=== PATIENT | male | born 1995 | race Caucasian/White ===

== ENCOUNTER 2022-12-22 02:25 | Day surgery (SDC) | payer BC, SELFPAY ==
[2022-12-16 08:35] VITALS: BMI 52.3
[2022-12-22 13:19] VITALS: BP 126/85; PULSE 82; RESP 20; TEMP 36.5; O2SAT 98; BMI 51.9
[2022-12-22] MEDS: LACTATED RINGERS 1,000 ML 150 ML IV CONT (13:31)
--- NOTE | 2022-12-22 13:33 | P.PNAN_ITS ---
Anes - Initial Pre Proc Eval Procedure: Operation Date: 12/22/22 14:15 Proposed Procedures p Esophagogastroduodenoscopy & Colonoscopy - Chalino Mcfadden MD Date/Time: 12/22/22 13:33 Surgeon: Chalino Mcfadden MD Pre Op Diagnosis: Left upper quad pain, Vomiting, diarrhea Patient Data Age: 27 Gender: M Height: 1.85 m Weight: 178.6 kg Last Vital Signs Temp 97.7 F 12/22/22 13:19 Pulse 82 12/22/22 13:19 Resp 20 12/22/22 13:19 BP 126/85 12/22/22 13:19 Pulse Ox 98 12/22/22 13:19 O2 Del Method Room Air 12/22/22 13:19 Allergies Allergy/AdvReac Type Severity Reaction Status Date / Time avocado Allergy Mild Unknown Verified 12/22/22 13:18 banana Allergy Mild Unknown Verified 12/22/22 13:18 Home Medications Medication Instructions Recorded Confirmed Type hyoscyamine sulfate 0.125 mg tablet 0.125 mg PO QID PRN dyspepsia 1 12/13/22 12/22/22 Rx month #120 tabs levothyroxine 25 mcg capsule 25 mcg PO DAILY 12/13/22 12/22/22 History pantoprazole 40 mg granules 40 mg PO DAILY 12/13/22 12/22/22 History delayed-release for susp in packet Patient hx anesthesia problems: none Family hx anesthesia problems: none Results Review: All pre-operative results and documents have been reviewed as part of the pre- operative evaluation. [facility] Past Medical History Medical History (Updated 12/13/22 @ 15:54 by SYLVIA Reardon) Diarrhea Vomiting Social History Social History (Updated 12/13/22 @ 16:04 by SYLVIA Reardon) Years smoked: 5 Smoking status: Current every day smoker Spiritual care concerns: No Anes - Eval Final PreProcedure Day of Procedure 12/22/22 13:33 Patient weight: super morbidly obese Heart: regular rate and rhythm Lungs: clear to auscultation Airway: Mallampati scale class III Neurological: alert and oriented Last oral intake: >/= 8 hours ASA classification: III Emergent: no Anesthetic plan: proceed Anesthesia type and monitoring: general GIVS and standard monitoring Results Review: All pre-operative results and documents have been reviewed as part of the pre- operative evaluation. Informed Consent: The patient's anesthetic plan and its attendant risks and benefits were discussed with the patient/family/POA. Questions were solicited and answers provided to the satisfaction of the patient/family/POA.
--- NOTE | 2022-12-22 13:52 | PM.HPGS ---
History of Present Illness History of Present Illness Consent: Risks, benefits, and alternatives have been discussed and questions answered. Patient agrees to proceed with procedure. Chief complaint: Left upper quad pain, Vomiting, diarrhea Narrative: Viral Kelly Jr. is a 27 year old male ?for evaluation of diarrhea times one year.? states symptoms occurred after eating and originally thought it was due to food poisoning. States he can have anywhere from 2-10 watery stools per day.? He reports urgency and accidents.? Loose stools most often occurs 30 minutes after eating. He can not identify any particular foods that make his symptoms worse. He also reports left upper quadrant pain that occurs shortly after eating.? Pain can last 30 minutes to all day long.? Pain does not improve with bowel movements.? He denies any associated nausea but occasionally will have random episodes of vomiting after eating. He denies any reflux/dysphagia/odynophagia. He denies any black stools or bloody stools. He denies any nighttime awakenings for diarrhea. he was started on pantoprazole and dicyclomine per PCP. Initially symptoms improved but this did not last long. Review of Systems Review of Systems: All systems reviewed & are unremarkable except as noted in HPI and below PMFSH Past Medical History Medical History Diarrhea Vomiting Social History Social History Years smoked: 5 Smoking status: Current every day smoker Spiritual care concerns: No Meds Home Medications and Allergies Home Medications Medication Instructions Recorded Confirmed Type hyoscyamine sulfate 0.125 mg tablet 0.125 mg PO QID PRN dyspepsia 1 12/13/22 12/22/22 Rx month #120 tabs levothyroxine 25 mcg capsule 25 mcg PO DAILY 12/13/22 12/22/22 History pantoprazole 40 mg granules 40 mg PO DAILY 12/13/22 12/22/22 History delayed-release for susp in packet Allergies Allergy/AdvReac Type Severity Reaction Status Date / Time avocado Allergy Mild Unknown Verified 12/22/22 13:18 banana Allergy Mild Unknown Verified 12/22/22 13:18 Vital Signs Vital Signs - 24 hr 12/22/22 13:19 Temperature 36.5 C Pulse Rate 82 Respiratory Rate 20 Blood Pressure 126/85 Pulse Oximetry 98 Oxygen Delivery Room Air Exam Const: General: alert Orientation/consciousness: patient oriented x3 Resp: Auscultation: clear to auscultation bilaterally Cardio: Rhythm: regular rhythm GI: GI Palp: Yes Soft to palpation and No Tenderness to palpation present (GI) Neuro: General: patient oriented x3 Assessment and Plan Assessment and plan (1) Vomiting: Code(s): R11.10 - Vomiting, unspecified Status: Acute Assessment and Plan: EGD with possible biopsy or dilatation or cautery. (2) Diarrhea: Code(s): R19.7 - Diarrhea, unspecified Status: Acute Assessment and Plan: Colonoscopy with possible biopsy or polypectomy or cautery or injection of substances.
--- NOTE | 2022-12-22 14:44 | SUR.OPER ---
EGD started at 1436 and ended at 1439. Colonoscopy began at 1446.
[2022-12-22 15:01] VITALS: BP 106/69; PULSE 90; RESP 23; O2SAT 94
[2022-12-22 15:11] VITALS: BP 116/80; PULSE 80; RESP 23; O2SAT 99
[2022-12-22 15:21] VITALS: BP 122/86; PULSE 67; RESP 23; O2SAT 99
== END 2022-12-22 15:42 | disposition home or self-care (01) ==
PROVIDERS: PCP Internal Medicine; Visit Provider Internal Medicine Gastroenterology
PROC: 0DJ08ZZ Inspection of Upper Intestinal Tract, Via Natural or Artificial Opening Endoscopic (ICD-10-PCS; CPT 43235; principal; 2022-12-22 14:15)
DX: R19.7 Diarrhea, unspecified (principal); R11.10 Vomiting, unspecified; R10.12 Left upper quadrant pain; K21.9 Gastro-esophageal reflux disease without esophagitis; F17.210 Nicotine dependence, cigarettes, uncomplicated; E66.9 Obesity, unspecified; Z68.43 Body mass index [BMI] 50.0-59.9, adult
CPT/HCPCS: 45380; 43239; 88305; J2704; J7120

== ENCOUNTER 2024-06-21 14:25 | Emergency (ER) | payer BC, SELFPAY | END 2024-06-21 14:46 | disposition left against medical advice (07) | LOC: ANHED 14:46 | PROVIDERS: PCP Internal Medicine | DX: Z53.21 Procedure and treatment not carried out due to patient leaving prior to being seen by health care provider (principal) | CPT/HCPCS: 99199 ==

== ENCOUNTER 2024-08-29 17:01 | Emergency (ER) | payer OTHER, SELFPAY ==
--- NOTE | ~2024-08-29 | XR_ITS ---
XR foot LT min 3V 08/29/2024 17:26 Indication: Left foot pain Procedure: 4 views left foot Comparison: No prior studies for comparison. Findings: No fracture, subluxation or dislocation. Lisfranc joint intact. No significant soft tissue abnormality. No foreign bodies. Impression: 1: No acute bone or joint abnormality. Reviewed, dictated and finalized at location A. Impression: 1: No acute bone or joint abnormality.
--- NOTE | 2024-08-29 17:04 | ED.LOWEXIN ---
HPI - Extremity Injury (Lower) General Chief Complaint: Extremity Injury, Lower Stated Complaint: L FOOT PAIN Time Seen by Provider: 08/29/24 17:04 Source: patient Mode of arrival: ambulatory Limitations: no limitations History of Present Illness HPI Narrative: Viral is a 29-year-old male patient presenting to the clinic today with complaints of left foot pain 5 months. He reports he stepped in a whole in a sidewalk 5 months ago and injured his left foot. Is complaining of pain to the lateral dorsal foot. No bruising or swelling noted. States that he has pain when he rest his foot and begins to get back on the foot or when he wakes up in the morning he has pain when he starts walking. Related Data Home Medications ?Medication ?Instructions ?Recorded ?Confirmed ?Last Taken ?Type levothyroxine 25 mcg capsule 25 mcg PO DAILY 12/13/22 08/29/24 Unknown History pantoprazole 40 mg granules 40 mg PO DAILY 12/13/22 08/29/24 Unknown History delayed-release for susp in packet Allergies Allergy/AdvReac Type Severity Reaction Status Date / Time avocado Allergy Mild Unknown Verified 08/29/24 17:11 banana Allergy Mild Unknown Verified 08/29/24 17:11 Review of Systems Review of Systems: Pertinent positives per HPI. Patient denies any fever, chills, rash, headache, visual changes, dizziness, cough, runny nose, sore throat, shortness of breath, chest pain, palpitations, nausea, vomiting, diarrhea, constipation, abdominal pain, or any urinary issues. PMFSH Past Medical History Medical History Vomiting Diarrhea Social History Social History Years smoked: 5 Smoking status: Current every day smoker Spiritual care concerns: No Comments At the time of my signature, I reviewed and agree with the nursing past medical, surgical, social, and family history. There is no relevant family history pertinent to the patient complaint. Exam Narrative: General: Well-developed, morbidly obese, in no apparent distress Head: Normocephalic, atraumatic. Cardio: Regular rate and rhythm, s1 and s2 normal, no murmur appreciated. Resp: Clear to auscultation bilaterally, no rhonchi, rales, wheezing or rubs. Musculoskeletal: No deformity, tender to palpation over the left lateral dorsal foot, grossly normal range of motion, muscle strength strong and equal, peripheral pulse strong, no edema, no cyanosis, normal gait and station Course Course Emergency Course: Portions of this record may have been created with voice recognition software. Level of Care: Express Care Visit Vital Signs Vital signs: Vital Signs Temperature 36.6 C 08/29/24 17:12 Pulse Rate 78 08/29/24 17:12 Respiratory Rate 16 08/29/24 17:12 Blood Pressure 135/87 08/29/24 17:12 Pulse Oximetry 100 08/29/24 17:12 Temperature 36.6 C 08/29/24 17:12 Pulse Rate 78 08/29/24 17:12 Respiratory Rate 16 08/29/24 17:12 Blood Pressure 135/87 08/29/24 17:12 Pulse Oximetry 100 08/29/24 17:12 Vital signs reviewed MDM - Extremity Injury (Lower) MDM Narrative Medical decision making narrative: At the time of visit patient is resting comfortably on the exam table. Patient appears to be nontoxic. Diagnostics: X-rays negative for any sign of fracture or malalignment of the left foot. Plan: I suspect you have chronic foot pain. Supportive measures were discussed with the patient and they voiced understanding discharge instructions and agrees to treatment plan. Return precautions reviewed Differential Diagnosis Differential diagnosis: Likely other (Foot fracture, foot sprain, arthritis, tendinitis) Imaging Data Radiologist's impression: ITS Impressions Foot X-Ray 08/29/24 17:29 Impression: 1: No acute bone or joint abnormality. Discharge Plan Discharge Clinical Impression: Chronic pain in left foot Patient Disposition: Home, Self-Care Condition: Stable Instructions: Antibiotic Form, Foot Sprain (ED) Additional Instructions: X-rays negative for any sign of fracture or malalignment of the left foot. Rest, ice, elevate Tylenol/motrin for pain as discussed. Gradually bear weight No running or sports until healed. Follow up with your PCP if symptoms persist more than 1 week. May follow-up with orthopedic provider if symptoms persist-may need further evaluation with an MRI Patient Language: Palestinian Prescriptions: No Action pantoprazole [address] for susp in packet 40 mg PO DAILY levothyroxine 25 mcg capsule 25 mcg PO DAILY hyoscyamine sulfate 0.125 mg tablet 0.125 mg PO QID PRN (Reason: dyspepsia) 30 Days Qty: 120 2RF Follow-up/Referrals: Jignesh De La Cruz MD [Physician] - 1 Day (Chronic left foot pain) Adria,Narayan Brody MD [Primary Care Provider] - Time of Disposition: 17:35 Quality NIHSS Nursing Documentation ED NIHSS nursing documentation: reviewed/agree
[2024-08-29 17:12] VITALS: BP 135/87; PULSE 78; RESP 16; TEMP 36.6; O2SAT 100
== END 2024-08-29 17:44 | disposition home or self-care (01) ==
PROVIDERS: Emergency Provider Nurse Practitioner Family; PCP Internal Medicine
DX: G89.29 Other chronic pain (principal); M79.672 Pain in left foot; F17.200 Nicotine dependence, unspecified, uncomplicated
CPT/HCPCS: 73630; 99213; G0463

== ENCOUNTER 2024-10-21 19:08 | Emergency (ER) | payer OTHER, SELFPAY ==
[2024-10-21 19:11] VITALS: BP 118/81; PULSE 114; RESP 16; TEMP 37.4; O2SAT 98
--- NOTE | 2024-10-21 19:46 | ED_ITS ---
HPI - Fever General Chief Complaint: Fever Stated Complaint: Fever Source: patient and RN notes reviewed Mode of arrival: ambulatory Limitations: no limitations History of Present Illness HPI Narrative: 29-year-old male presents Express Care with girlfriend complaining of fever for 4 days. Patient reports having fevers as high as the 105 in 104 F at home. Patient initially went to [facility] over the weekend and left without being seen due to the wait. Patient then returned today to [facility] ER and had lab work and imaging performed. He then left the ER again due to the wait time. Patient is here for further evaluation. Patient says that he is fevers, body aches, chills, blurry vision, sores on his lips and a sore on the roof of his mouth, and pain when he moves his eyes. Patient denies any upper respiratory symptoms, abdominal pain, nausea, vomiting, diarrhea, chest pain, shortness of breath, urinary symptoms. Patient denies any significant past medical history. Patient last took Tylenol today around 530 this evening. Patient showed lab work and imaging was performed today through clinician that showed leukopenia, unremarkable chemistry, negative chest x-ray for any cardiopulmonary findings, negative COVID and flu, and normal lactic acid. Related Data Home Medications Medication Instructions Recorded Confirmed Last Taken Type levothyroxine 25 mcg capsule 25 mcg PO DAILY 12/13/22 08/29/24 Unknown History pantoprazole 40 mg granules 40 mg PO DAILY 12/13/22 08/29/24 Unknown History delayed-release for susp in packet Allergies Allergy/AdvReac Type Severity Reaction Status Date / Time avocado Allergy Mild Unknown Verified 10/21/24 19:40 banana Allergy Mild Unknown Verified 10/21/24 19:40 Review of Systems Review of Systems: CONSTITUTIONAL: Positive for fever, chills, or sweats. EYES: Denies visual changes, redness, or discharge. Positive for blurry vision pain with eye movement. ENT: Denies rhinorrhea, congestion, sore throat, or otalgia. Positive for lip and mouth sores. CARDIOVASCULAR: Denies chest pain, palpitations, or edema. RESPIRATORY: Denies cough or dyspnea. GASTROINTESTINAL: Denies abdominal pain, nausea, vomiting, or diarrhea. GENITOURINARY: Denies dysuria or hematuria. SKIN: Denies rash or itching. MUSCULOSKELETAL: Denies back pain, joint pain, or myalgia. NEUROLOGIC: Denies headache, numbness, or weakness. PSYCHIATRIC: Denies anxiety or depression. All other systems reviewed are negative, except as documented in HPI. [facility] Past Medical History Medical History Vomiting Diarrhea Social History Social History Years smoked: 5 Smoking status: Current every day smoker Spiritual care concerns: No Comments At the time of my signature, I reviewed and agree with the nursing past medical, surgical, social, and family history. There is no relevant family history pertinent to the patient complaint. Exam Narrative: GENERAL: This is a well-nourished, well-developed adult, in no apparent distress. They are are ill-appearing, nontoxic appearing. Patient is profusely sweating. Patient is morbidly obese. Ago exam limited due to large body ramirez bitus. HEAD: normocephalic, atraumatic. EYES: Sclera clear/white. Conjunctiva normal. Vision is grossly intact. Extraocular movements intact. Pain with movement of eye. Pupils PERRLA. No nystagmus. Patient reports blurry vision in the right eye. EARS: External ears normal, auditory canals clear and without drainage, TMs normal without perforation. Hearing grossly intact. NOSE: External nose normal with no obvious nasal discharge, nasal turbinates without redness, no rhinorrhea. THROAT: Mucous membranes moist, posterior pharynx clear, without erythema or swelling. Uvula midline. MOUTH: Oropharynx: Single painful circular erythematous vesicular lesion to the hard palate of the oral pharynx located on the right side. Teeth are intact. No Gingivitis. Tongue is normal without swelling or redness. Lips: To painful circular erythematous vesicular lesions to the upper lip. NECK: Neck supple, non-tender without lymphadenopathy, masses or thyromegaly. CARDIOVASCULAR: Regular rate and rhythm without murmurs, gallops, or rubs. RESPIRATORY: Clear to auscultation. Breath sounds equal bilaterally. No wheezes, rales, or rhonchi. Respiratory rate normal, respiratory effort nonlabored, no respiratory distress GASTROINTESTINAL: Abdomen soft, non-tender, nondistended. Bowel sounds are active. No hepato-splenomegaly, or palpable masses. No guarding. SKIN: warm, Dry, intact with no suspicious lesions or rash, good texture and turgor. NEURO: awake, alert, and oriented to person, place and time. There were no obvious focal neurologic abnormalities. EXTREMITIES: No joint tenderness, effusion, or edema noted. BACK: Nontender without deformity. No CVA tenderness. Course Course Emergency Course: Portions of this record may have been created with voice recognition software Level of Care: Express Care Visit Vital Signs Vital signs: Vital Signs Temperature 99.4 F 10/21/24 19:11 Pulse Rate 114 H 10/21/24 19:11 Respiratory Rate 16 10/21/24 19:11 Blood Pressure 118/81 10/21/24 19:11 Pulse Oximetry 98 10/21/24 19:11 Oxygen Delivery Room Air 10/21/24 19:11 Temperature 99.4 F 10/21/24 19:11 Pulse Rate 114 H 10/21/24 19:11 Respiratory Rate 16 10/21/24 19:11 Blood Pressure 118/81 10/21/24 19:11 Pulse Oximetry 98 10/21/24 19:11 Oxygen Delivery Room Air 10/21/24 19:11 Reviewed Transfer Transfered to: [facility] Medical Transportation: Other (Private vehicle) Transfer rationale: Fever of unknown origin, higher level care Accepting physician: Doctor Del Valle MDM - Fever MDM Narrative Medical decision making narrative: After review of patient's lab work, vitals, and patient's symptoms is recommend the patient return to the ER for higher level care for further evaluation and management of his symptoms. Patient does not want to go back to [facility]. Patient is agreeable to go to [facility]. Call report over to [facility] spoke to Miller SORIANO whose wear this patient Dr. Del Valle accepted this patient for transfer. Patient advised to remain NPO and proceed immediately to the ER. Patient girlfriend will drive him via private vehicle. Differential Diagnosis Differential diagnosis: Likely fever of unknown origin, viral infection and sepsis Critical Care Time Critical Care Time Critical Care Time: No Discharge Plan Discharge Clinical Impression: Fever, Blurred vision, right eye Patient Disposition: Acute Care Hospital Condition: Stable Patient Language: Wallisian Prescriptions: No Action pantoprazole 40 mg granules for susp in packet 40 mg PO DAILY levothyroxine 25 mcg capsule 25 mcg PO DAILY hyoscyamine sulfate 0.125 mg tablet 0.125 mg PO QID PRN (Reason: dyspepsia) 30 Days Qty: 120 2RF Follow-up/Referrals: Adria,Narayan Brody MD [Primary Care Provider] - Time of Disposition: 19:45
== END 2024-10-21 19:53 | disposition short-term general hospital (02) ==
PROVIDERS: PCP Internal Medicine
DX: R50.9 Fever, unspecified (principal); H53.8 Other visual disturbances; F17.200 Nicotine dependence, unspecified, uncomplicated
CPT/HCPCS: 99212; G0463

== ENCOUNTER 2024-12-12 06:37 | Outpatient (CLI) | payer OTHER, SELFPAY ==
--- NOTE | ~2024-12-12 | MR_ITS ---
EXAMINATION: MR foot LT wo con DATE: 12/12/2024 08:05 INDICATION: Left foot injury TECHNIQUE: Magnetic resonance imaging (MRI) of the left fore/mid foot was performed without intraveno us contrast. Sequences included sagittal T1-weighted FSE, sagittal fluid sensitive FSE STIR, coronal PD-weighted FS FSE, coronal T1-weighted FSE, axial PD-weighted FS FSE, and axial PD-weighted FSE. COMPARISON: Left foot radiographs dated 08/29/2024 FINDINGS: Bone alignment is normal. There is normal bone marrow signal throughout. No fracture or pathologic ma rrow replacing process. Joint spaces are normal. No erosions. No joint effusions or other abnormal fl uid collections. The visualized portions of the flexor and extensor tendons are normal. The Lisfranc ligament complex as well as the collateral ligament complex at the metatarsophalangeal and interphala ngeal joints are normal. There is susceptibility artifact along the skin surface plantar/medial to th e neck of the first metatarsal likely related to foreign body either along or just deep to the skin s urface. IMPRESSION: 1. Magnetic field artifact consistent with small metallic foreign body heights are longer just deep t o the skin surface, plantar/medial to the neck of the first metatarsal. Otherwise unremarkable MRI of the left fore and midfoot. Reviewed, dictated and finalized at location A. IMPRESSION: 1. Magnetic field artifact consistent with small metallic foreign body heights are longer just deep to the skin surface, plantar/medial to the neck of the fir st metatarsal. Otherwise unremarkable MRI of the left fore and midfoot.
--- NOTE | ~2024-12-12 | MR_ITS ---
MRI of the left ankle Clinical history: Injury Technique: Coronal proton-density and proton-density fat-sat images, axial proton-density and proton- density fat-sat images, and sagittal proton-density and proton-density fat-sat images were acquired. Findings: Syndesmotic ligaments are intact. Anterior and posterior talofibular ligaments, and calcane ofibular ligament are probably intact. Deltoid ligament intact. Medial flexor tendons, peroneal tendons, anterior extensor tendons, and Achilles tendon are intact. No osteochondral lesion of the talar dome seen. Joint spaces and bone marrow signals are unremarkable . No significant joint effusion. Plantar fascia intact. No soft tissue mass or fluid collection seen. Impression: No significant abnormality. Reviewed, dictated and finalized at [facility]. Impression: No significant abnormality.
--- OUTSIDE RECORDS SUMMARY | 2024-12-12 06:40 | XMS_ITS | Encounter Summary ---
Author Organization [facility] Address [address] [place] [address] Care Team Providers Care Granite Countertop Installer Name Role Phone Derrell Stanley MD Primary Care Provider [phone] Encounter Details Date Type Department Care Team (Latest Contact Info) Description 01/24/2007 Outpatient Historical [facility], Vega Garcia MD 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
--- OUTSIDE RECORDS SUMMARY | 2024-12-12 06:40 | XMS_ITS | Encounter Summary ---
Author Organization [facility] Address [address] [place] [address] Care Team Providers Care Department Head Name Role Phone Derrell Stanley MD Primary Care Provider [phone] Encounter Details Date Type Department Care Team (Late st Contact Info) Description 09/20/2006 Outpatient [facility] Pediatric[facility] [address] [place] [address] Vega Adame MD [id number] [place] [address] Social History Tobacco Use Types Packs/Day Years Used Date Smoking Tobacco: Never Assessed Sex and Gender Information Value Date Recorded Sex Assigned at Not on file 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
--- OUTSIDE RECORDS SUMMARY | 2024-12-12 06:40 | XMS_ITS | Encounter Summary ---
Author Organization [facility] Address [address] [place] [address] Care Team Providers Care Siding Mechanic Name Role Phone Derrell Stanley MD Primary Care Provider [phone] Encounter Details Date Type Department Care Team (Late st Contact Info) Description 11/05/2003 Outpatient Historical [facility] Pediatrics - [facility] [address] [address] Vega Adame MD 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
--- OUTSIDE RECORDS SUMMARY | 2024-12-12 06:40 | XMS_ITS | Encounter Summary ---
Author Organization [facility] Address [address] [place] [address] Care Team Providers Care Rehab Aid Name Role Phone Derrell Stanley MD Primary Care Provider [phone] Encounter Details Date Type Department Care Team (Latest Contact Info) Description 03/19/2005 [facility] Vega Garcia MD [address] 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 Gender Identity Not on file Sexual Orientation Not on file documented as of this encounter Plan of Treatment Not on file documented as of this encounter Procedures Procedure Name Priority Date/Time Associated Diagnosis Comments HEMOGLOBIN AND HEMATOCRIT Routine 03/19/2005 11:47 AM CDT LEAD BLOOD Routine 03/19/2005 11:47 AM CDT GLUCOSE LEVEL Routine 03/19/2005 11:47 AM CDT LIPID PANEL Routine 03/19/2005 11:47 AM CDT documented in this encounter Results * GLUCOSE LEVEL (03/19/2005 11:47 AM CDT) GLUCOSE 68 60 - 110 mg/dL INTERFACE SYSTEM 03/19/2005 11:4 7 AM CDT Vega Adame MD CHEMISTRY ORDERABLES Final Resu lt Performing Organization Address [facility] Phone Number INTERFACE SYSTEM Refer to clinic/hospital department * LEAD BLOOD (03/19/2005 11:47 AM CDT) LEAD BLOOD <3 <10 ug/dL INTERFACE SYSTEM LEAD COLLECTION SAMPLE VENOUS INTERFACE SYSTEM Comment: Lab test performed by: [email or web address] [id number] JUSTINA FUENTES MD 03/19/2005 11:4 7 AM CDT Vega Adame MD CHEMISTRY ORDERABLES COM Final Result Performing Organization Address [facility] Phone Number INTERFACE SYSTEM Refer to clinic/hospital department * HEMOGLOBIN AND HEMATOCRIT (03/19/2005 11:47 AM CDT) HEMOGLOBIN 13.2 11.5 - 15.5 g/dL INTERFACE SYSTEM HEMATOCRIT 38.6 35.0 - 45.0 % INTERFACE SYSTEM 03/19/2005 11:4 7 AM CDT Vega Adame MD HEMATOLOGY ORDERABLES Final Res ult Performing Organization Address [facility] Number INTERFACE SYSTEM Refer to clinic/hospital department * (ABNORMAL) LIPID PANEL (03/19/2005 11:47 AM CDT) CHOLESTEROL 174(H) 90 - 169 mg/dL INTERFACE SYSTEM TRIGLYCERIDE 86 33 - 129 mg/dL INTERFACE SYSTEM HDL 83(H) 38 - 76 mg/dL INTERFACE SYSTEM LDL CALCULATED 74 <=109 mg/dL INTERFACE SYSTEM CHOL/HDL RATIO 2.1 2.0 - 5.0 INTER FACE SYSTEM Comment:See interpretive suzi a section for risk classifications. LIPID PANEL COMMENT See below INTERFACE SYSTEM Comment: Adult ATP III Classifications: Cholesterol (mg/dL) Triglyceride (mg/dL) Desirable <200 Normal <150 Borderline 200 - 239 Borderline High 150 - 199 High >=240 High 200 - 499 Very High >=500 HDL Cholesterol (mg/dL) LDL (mg/dL) Low (increased risk) <40 Optimal <100 High (reduced risk) >=60 Near or above optimal 100 - 129 Borderline 130 - 159 High 160 - 189 Very High >=190 LDL calculation is not accurate if Triglycerides are greater than 400 mg /dL Pediatric NCEP Classifications: Cholesterol(<20 years),(mg/dL) Triglyceride Desirable <170 Pediatric classification Borderline 170 - 199 not defined. High >=200 HDL (<5 years) LDL (mg/dL) No Reference Range Established Desirable <110 Borderline 110 - 129 High >=130 03/19/2005 11:4 7 AM CDT us Vega Adame MD CHEMISTRY ORDERABLES Final Resu lt INTERFACE SYSTEM Refer to clinic/hospital department documented in this encounter Visit Diagnoses Diagnosis Routine or child health check- Primary documented in this encounter Care Teams Rehab Aid Relationship Specialty Start Date End Date Derrell Stanley MD [address] [facility] [address] [place] [id number] PCP - General Family Practice 10/27/09 documented as of this encounter
--- OUTSIDE RECORDS SUMMARY | 2024-12-12 06:40 | XMS_ITS | Encounter Summary ---
Author Organization [facility] Address [address] [place] [address] Care Team Providers Care Herbologist Name Role Phone Derrell Stanley MD Primary Care Provider [phone] Encounter Details Date Type Department Care Team (Late st Contact Info) Description 02/16/2005 Outpatient [facility] [address] [place] [address] Vega Adame MD [id number] [place] [address] Social History Tobacco Use Types Packs/Day Years Used Date Smoking Tobacco: Never Assessed Sex and Gender Information Value Date Recorded Sex Assigned at Not on file 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
--- OUTSIDE RECORDS SUMMARY | 2024-12-12 06:40 | XMS_ITS | Data Portability ---
Author Organization [facility] [employer], Main Office Address [address] [place] [address] Assessment Encounter Date Assessment Date Assessment LastModified by Organization Details LastModified Time 06/08/2023 06/08/2023 Rectal bleeding with bowel movements for several days. Negative colonoscopy approximately 5 months ago. . We will prescribe 10 days steroid suppositories. Patient will follow up if symptoms worsen or Reoccur. Patient will also have counseled to increase fiber intake avoid fatty and stay hydrated [email or web address] Not available 06/08/2023 13:29:27 Plan of Treatment Reminders Order Date Submit Date Provider Last Modified By Organization Details Last Modified Time Details Appointments None recorded. Lab BABATUNDE (antinuclea r antibodies) screen, ifa, serum 2024 025 [facility] (Lab), [address] [place], [address], 5 15:21:44 C-reactive protein, quantitativ e, serum or plasma [address] (Lab), [address] [place], [address], 5 15:36:33 erythrocyte sedimentati on rate, QN, blood [address] (Lab), [address] [place], [address], 5 15:36:33 Rickettsia rickettsii IgG Ab, QL, IA, Serum or Plasma [address] (Lab), [address] [place], [address], 5 15:36:33 C-reactive protein, quantitativ e, serum or plasma [address] (Lab), [address] [place], [address], 5 15:36:32 BMP, serum or plasma [address] (Lab), [address] [place], [address], 5 15:36:33 HBsAg (hepatitis B surface Ag), serum 2024 [place] [address] [facility], [address], [place], [address], 5 15:36:33 hepatitis B core Ab, total, serum 2024 [place] [facility], [address], [address], [place], [address], 5 00:19:32 hepatitis B core IgM Ab, qual, serum or plasma 2024 025 [place] [facility], [address], [place], [address], 5 14:13:21 hepatitis B surface Ab, quantitativ e, serum 2024 025 [place] [facility], [address], [place], [address], 5 16:12:20 hepatitis A virus Ab, qualitative , immunoassay , serum 2024 025 [place] [facility], [address], [address], [place], [address], 5 01:18:44 hepatitis A IgM Ab, qual immunoassay , serum or plasma 2024 025 [place] [facility], [address] , [address], [place], [address], 5 00:19:32 hepatitis C Ab, serum 2024 025 [place] [facility], [address] , [address], [place], [address], 5 16:12:20 hepatic function panel, serum 2024 025 [place] [facility], [address] , [address], [place], [address], 5 14:31:02 testosteron e, free + total, serum 2024 025 [facility] (Lab), [address] [place], [address], 5 04:16:57 TSH, serum or plasma 2024 025 [facility] (Lab), [address] [place], [address], 5 04:16:57 lipid panel, serum 2022 023 [facility] (Lab), [address] [place], [address], 3 21:32:12 CBC w/ auto diff 2022 023 [facility] (Lab), [address] [place], [address], 3 19:44:43 CMP, serum or plasma 2022 023 [facility] (Lab), [address] [place], [address], 3 21:32:08 TSH, serum or plasma 2022 023 [facility] (Lab), [address] [place], [address], 3 19:41:01 T3, free, serum or plasma 2022 023 [facility] (Lab), [address] [place], [address], 3 19:41:11 T4, free, serum 2022 023 [facility] (Lab), [address] [place], [address], 3 19:40:56 testosteron e, free + total, serum 2022 023 [facility] (Lab), [address] [place], [address], 4 09:08:37 Referral None recorded. Procedures None recorded. Surgeries None recorded. Imaging CT, ankle + foot, w/ contrast - Pelase call patient to schedule. 2024 025 [email or web address] [facility] ([facility] Sched[facility]), [address] [place], [address], 5 11:52:57 US, echocardiog lynda, transthorac ic, complete - no auth required [email or web address] [place] [address] ([facility] Call Scheduling), [address] [place], [address], 4 08:10:44 electrocard iogram 2022 023 [email or web address] [facility] [address], [facility] [place], [address], 3 09:11:33 Medication Orders Valtrex 500 mg tablet 2024 025 [facility] #48851, [address], [place], [place], [id number], 5 13:53:24 doxycycline hyclate 100 mg capsule 2024 025 [facility] #35363, [address], [place], [place], [id number], 5 13:53:24 ibuprofen 800 mg tablet 2024 025 [facility] #09844, [address], [place], [place], [id number], 5 16:58:08 Zepbound 2.5 mg/0.5 mL subcutaneou s pen injector [email or web address] [facility] #21314, [address], [place], [place], [id number], 5 12:06:58 carvedilol 3.125 mg tablet 2024 025 [facility] #53543, [address], [place], [place], [id number], 5 15:53:55 levothyroxi ne 50 mcg tablet 2024 025 [facility] #93339, [address], [place], [place], [id number], 5 15:53:54 Patient TargetsNo targets recorded. Patient Instructions Encounter Date Encounter Id Patient Instructions Last Modified By Organization Details Last Modified Time 10/22/2024 [id number] Continue to take advil around the clock for fever. Continue to drink water and stay hydrated. If symptoms worsen, proceed to the Emergency room. Watch for any bulls eye rash on body related to possible tick bite. [email or web address] Not available 10/22/2024 13:52:10 Discussed care and worsening symptoms at this time. Continue to wear a mask in public at this time due to fever. Increase rest and water intake at this time. Symptom management at this time. Labs ordered- will notify of results. [email or web address] Not available 10/22/2024 14:51:20 Reason for Referral None Reported. Results Created Date Observation Date Name Description Value Unit Range Abnormal Flag Note LastModifiedBy Organization Detail LastModifiedTime 05/22/2005/22/2023 T4 FREE free T4 1.15 NG/dL 0.78-2 .19 Not Available [facility] (Lab) [address] [place], [address], 05/22/2023 20:36:35 05/22/20 23 05/22/2023 TSH thyroid-stim ulating hormone 5.030 uIU/m L 0.465- 4.680 high Not Available [facility] (Lab) [address] [place], [address], 05/22/2023 20:36:56 05/22/20 23 05/22/2023 T3 FREE free T3 3.8 pg/mL 2.77-5 .27 Not Available [facility] (Lab) [address] [place], [address], 05/22/2023 20:36:40 05/22/20 23 05/22/2023 CBC/C OMPLE TE BLD COUNT W/DIF F white blood cells 6.3 x10'3 /uL 4.2-10 .8 Not Available [facility] (Lab) [address] [place], [address], 05/22/2023 19:44:43 05/22/20 23 05/22/2023 CBC/C OMPLE TE BLD COUNT W/DIF F red blood cells 5.13 x10'6 /uL 4.10-5 .80 Not Available [facility] (Lab) [address] [place], [address], 05/22/2023 19:44:43 05/22/20 23 05/22/2023 CBC/C OMPLE TE BLD COUNT W/DIF F hemoglobin 15.0 g/dL 13.2-1 7.0 Not Available [facility] (Lab) [address] [place], [address], 05/22/2023 19:44:43 05/22/20 23 05/22/2023 CBC/C OMPLE TE BLD COUNT W/DIF F hematocrit 45.4 % 39.3-5 0.0 Not Available [facility] (Lab) [address] [place], [address], 05/22/2023 19:44:43 05/22/20 23 05/22/2023 CBC/C OMPLE TE BLD COUNT W/DIF F mean red cell volume 88.5 fL 80.0-9 7.0 Not Available [facility] (Lab) [address] [place], [address], 05/22/2023 19:44:43 05/22/20 23 05/22/2023 CBC/C OMPLE TE BLD COUNT W/DIF F mean red cell hemoglobin 29.2 pg 27.0-3 3.0 Not Available [facility] (Lab) [address] [place], [address], 05/22/2023 19:44:43 05/22/20 23 05/22/2023 CBC/C OMPLE TE BLD COUNT W/DIF F mean RBC HGB concentratio n 33.0 g/dL 31.0-3 6.0 Not Available [facility] (Lab) [address] [place], [address], 05/22/2023 19:44:43 05/22/20 23 05/22/2023 CBC/C OMPLE TE BLD COUNT W/DIF F red cell distribution width 12.9 % 11.8-1 5.5 Not Available [facility] (Lab) [address] [place], [address], 05/22/2023 19:44:43 05/22/20 23 05/22/2023 CBC/C OMPLE TE BLD COUNT W/DIF F platelets 270 x10'3 /uL 150-40 0 Not Available [facility] (Lab) [address] [place], [address], 05/22/2023 19:44:43 05/22/20 23 05/22/2023 CBC/C OMPLE TE BLD COUNT W/DIF F mean platelet volume 10.6 fL 9.0-12 .4 Not Available [facility] (Lab) [address] [place], [address], 05/22/2023 19:44:43 05/22/20 23 05/22/2023 CBC/C OMPLE TE BLD COUNT W/DIF F neutrophils 51.9 % 39.0-7 2.0 Not Available [facility] (Lab) [address] [place], [address], 05/22/2023 19:44:43 05/22/20 23 05/22/2023 CBC/C OMPLE TE BLD COUNT W/DIF F lymphocytes 37.7 % 16.0-4 7.0 Not Available [facility] (Lab) [address] [place], [address], 05/22/2023 19:44:43 05/22/20 23 05/22/2023 CBC/C OMPLE TE BLD COUNT W/DIF F monocytes 7.1 % 5.0-12 .0 Not Available [facility] (Lab) [address] [place], [address], 05/22/2023 19:44:43 05/22/20 23 05/22/2023 CBC/C OMPLE TE BLD COUNT W/DIF F eosinophils 2.5 % 1.0-7. 0 Not Available [facility] (Lab) [address] [place], [address], 05/22/2023 19:44:43 05/22/20 23 05/22/2023 CBC/C OMPLE TE BLD COUNT W/DIF F basophils 0.6 % 0.0-2. 0 Not Available [facility] (Lab) [address] [place], [address], 05/22/2023 19:44:43 05/22/20 23 05/22/2023 CBC/C OMPLE TE BLD COUNT W/DIF F immature granulocytes 0.2 % 0.00-0 .50 Not Available [facility] (Lab) [address] [place], [address], 05/22/2023 19:44:43 05/22/20 23 05/22/2023 CBC/C OMPLE TE BLD COUNT W/DIF F neutrophils, absolute count 3.29 x10'3 /uL 1.5-8. 0 Not Available [facility] (Lab) [address] [place], [address], 05/22/2023 19:44:43 05/22/20 23 05/22/2023 CBC/C OMPLE TE BLD COUNT W/DIF F lymphocytes, absolute count 2.39 x10'3 /uL 1.07-3 .43 Not Available [facility] (Lab) [address] [place], [address], 05/22/2023 19:44:43 05/22/20 23 05/22/2023 CBC/C OMPLE TE BLD COUNT W/DIF F monocytes, absolute count 0.45 x10'3 /uL 0.29-0 .99 Not Available [facility] (Lab) [address] [place], [address], 05/22/2023 19:44:43 05/22/20 23 05/22/2023 CBC/C OMPLE TE BLD COUNT W/DIF F eosinophils, absolute count 0.16 x10'3 /uL 0.02-0 .53 Not Available [facility] (Lab) [address] [place], [address], 05/22/2023 19:44:43 05/22/20 23 05/22/2023 CBC/C OMPLE TE BLD COUNT W/DIF F basophils, absolute count 0.04 x10'3 /uL 0.01-0 .08 Not Available [facility] (Lab) [address] [place], [address], 05/22/2023 19:44:43 05/22/20 23 05/22/2023 CBC/C OMPLE TE BLD COUNT W/DIF F immature granulocytes ,absolute 0.01 x10'3 /uL 0.00-0 .05 Not Available [facility] (Lab) [address] [place], [address], 05/22/2023 19:44:43 05/22/20 23 05/22/2023 CBC/C OMPLE TE BLD COUNT W/DIF F nucleated red blood cells 0.0 % -0 Not Available [facility] (Lab) [address] [place], [address], 05/22/2023 19:44:43 05/22/20 23 05/22/2023 CBC/C OMPLE TE BLD COUNT W/DIF F NRBC# 0.00 x10'3 /uL Not Available [facility] (Lab) [address] [place], [address], 05/22/2023 19:44:43 05/22/20 23 05/22/2023 COMPR EHENS CAROLYN METAB OLIC PANEL sodium 141 mmol/ L 137-14 5 Not Available [facility] (Lab) [address] [place], [address], 05/22/2023 21:32:07 05/22/20 23 05/22/2023 COMPR EHENS CAROLYN METAB OLIC PANEL potassium 4.5 mmol/ L 3.5-5. 1 Not Available [facility] (Lab) [address] [place], [address], 05/22/2023 21:32:07 05/22/20 23 05/22/2023 COMPR EHENS CAROLYN METAB OLIC PANEL chloride 107 mmol/ L 98-107 Not Available [facility] (Lab) [address] [place], [address], 05/22/2023 21:32:07 05/22/20 23 05/22/2023 COMPR EHENS CAROLYN METAB OLIC PANEL carbon dioxide 23 mmol/ L 22-30 Not Available [facility] (Lab) [address] [place], [address], 05/22/2023 21:32:07 05/22/20 23 05/22/2023 COMPR EHENS CAROLYN METAB OLIC PANEL anion gap 15.5 mmol/ L 14-22 Not Available [facility] (Lab) [address] [place], [address], 05/22/2023 21:32:07 05/22/20 23 05/22/2023 COMPR EHENS CAROLYN METAB OLIC PANEL glucose 95 mg/dL 70-99 Not Available [facility] (Lab) [address] [place], [address], 05/22/2023 21:32:07 05/22/20 23 05/22/2023 COMPR EHENS CAROLYN METAB OLIC PANEL BUN 11 mg/dL 8-19 Not Available [facility] (Lab) [address] [place], [address], 05/22/2023 21:32:07 05/22/20 23 05/22/2023 COMPR EHENS CAROLYN METAB OLIC PANEL creatinine 0.74 mg/dL 0.66-1 .25 Not Available [facility] (Lab) [address] [place], [address], 05/22/2023 21:32:07 05/22/20 23 05/22/2023 COMPR EHENS CAROLYN METAB OLIC PANEL GFR >60 Refer ence Range : [place] GFR Healt hy Adult : >60 mL/mi n/1.7 3 m2 Chron ic Kidne y Disea se: 15-60 mL/mi n/1.7 3 m2 Kidne y Failu re: <15/m L/min /1.73 m2 www.n iddk. nih.g ov The MDRD study equat ion has not been valid ated in child car <18 years of age; pregn ant women ; the elder ly >85 years of age; or in some racia l or ethni c subgr oups, such as Hispa nics. Outsi de the valid ated bree eters , estim ated GFR is less accur ate, requi ring clini kendra judgm ent on a case- by-ca se basis . Clini kendra inter preta tion for other races and ages must be made by the clini anaya. The MDRD study equat ion has not been valid ated for the evalu ation of serum creat inine relat ed to nutri sebastian l statu s or medic ation usage . For perso ns <18 years of age, a pedia tric GFR calcu lator is avail able on the [facility] websi te: https ://esau bar.chuy mcdermott/pr ofess ional s/kdo qi/gf r_cal culat or Not Available [facility] (Lab) [address] [place], [address], 05/22/2023 21:32:07 05/22/20 23 05/22/2023 COMPR EHENS CAROLYN METAB OLIC PANEL alkaline phosphatase 79 U/L 38-126 Not Available [facility] (Lab) [address] [place], [address], 05/22/2023 21:32:07 05/22/20 23 05/22/2023 COMPR EHENS CAROLYN METAB OLIC PANEL alanine aminotransfe rase 25 U/L 0-50 Not Available [facility] (Lab) [address] [place], [address], 05/22/2023 21:32:07 05/22/20 23 05/22/2023 COMPR EHENS CAROLYN METAB OLIC PANEL aspartate aminotransfe rase 24 U/L 15-46 Not Available [facility] (Lab) [address] [place], [address], 05/22/2023 21:32:07 05/22/20 23 05/22/2023 COMPR EHENS CAROLYN METAB OLIC PANEL bilirubin, total 0.50 mg/dL 0.20-1 .30 Not Available [facility] (Lab) [address] [place], [address], 05/22/2023 21:32:07 05/22/20 23 05/22/2023 COMPR EHENS CAROLYN METAB OLIC PANEL calcium 9.5 mg/dL 8.4-10 .2 Not Available [facility] (Lab) [address] [place], [address], 05/22/2023 21:32:07 05/22/20 23 05/22/2023 COMPR EHENS CAROLYN METAB OLIC PANEL total protein 7.7 g/dL 6.3-8. 2 Not Available [facility] (Lab) [address] [place], [address], 05/22/2023 21:32:07 05/22/20 23 05/22/2023 COMPR EHENS CAROLYN METAB OLIC PANEL albumin 4.3 g/dL 3.4-5. 0 Not Available [facility] (Lab) [address] [place], [address], 05/22/2023 21:32:07 05/22/20 23 05/22/2023 COMPR EHENS CAROLYN METAB OLIC PANEL globulin 3.4 g/dL 2.6-4. 2 Not Available [facility] (Lab) [address] [place], [address], 05/22/2023 21:32:07 05/22/20 23 05/22/2023 COMPR EHENS CAROLYN METAB OLIC PANEL A/G ratio 1.3 ratio 1.0-2. 0 Not Available [facility] (Lab) [address] [place], [address], 05/22/2023 21:32:07 05/22/20 23 05/22/2023 LIPID PANEL cholesterol 210 mg/dL 140-19 9 high NIH ALICE NSUS RECOM MENDA TION FOR YISEL STERO L: ADULT CHILD LOW RISK: <200 <170 BORDE RLINE : <200- 239 ----- HIGH RISK: >240 >200 Not Available [facility] (Lab) [address] [place], [address], 05/22/2023 21:32:12 05/22/20 23 05/22/2023 LIPID PANEL triglyceride s 107 mg/dL 0-150 NIH ALICE NSUS REPOR T RECOM MENDA TION FOR TRIGL YCERI MATT: ADULT CHILD LOW RISK: <150 ----- BODER LINE: 150-1 99 ----- HIGH RISK: >200 ----- Not Available [facility] (Lab) [address] [place], [address], 05/22/2023 21:32:12 05/22/20 23 05/22/2023 LIPID PANEL HDL cholesterol 56 mg/dL 40- Not Available [facility] (Lab) [address] [place], [address], 05/22/2023 21:32:12 05/22/20 23 05/22/2023 LIPID PANEL LDL cholesterol, calculated 133 mg/dL 0-130 high NIH ALICE NSUS REPOR T RECOM MENDA TIONS FOR LDL: ADULT CHILD LOW RISK <130 <110 (OPTI MAL LDL) <100 ----- BORDE RLINE : 130-1 59 ----- HIGH RISK: >160 >130 A TRIGL YCERI DE RESUL T >400 INVAL IDATE S THE CALCU LATIO N FOR LDL FRACT IONAT ION - THE LDL RESUL T WILL NOT BE REPOR KALANI. Not Available [facility] (Lab) [address] [place], [address], 05/22/2023 21:32:12 05/22/20 23 06/06/2023 TESTO STERO NE, FREE+ TOTAL LC/MS testosterone , total, lc/MS 238.4 NG/dL 264.0- 916.0 low This [facility] LC/MS -MS metho d is curre ntly certi fied by the CDC Hormo ne Stand ardiz ation Progr am (HoSt ). Adult male refer ence inter warner is based on a popul ation of healt hy nonob daisy males (BMI <30) betwe en 19 and 39 years old. Kenna cerda et.al . JCEM 2017, 102;1 161-1 173. PMID: 05779 103. Not Available [facility] (Lab) [address] [place], [address], 06/06/2023 09:08:37 05/22/20 23 06/06/2023 TESTO STERO NE, FREE+ TOTAL LC/MS testosterone , free 5.32 NG/dL 5.00-2 1.00 Not Available [facility] (Lab) [address] [place], [address], 06/06/2023 09:08:37 05/22/20 23 06/06/2023 TESTO STERO NE, FREE+ TOTAL LC/MS % free testosterone 2.23 % 1.50-4 .20 Perfo rmed at: BN - [facility] [place] [address] [facility] , [place] [address] Lab Direc tor: Anaid babin MD, Phone : [phone] Not Available [facility] (Lab) [address] [place], [address], 06/06/2023 09:08:37 05/22/20 23 elect rocar diogr am No observ ation record ed. [email or web address] [facility] [address] [place], [address], 05/22/2023 15:06:21 05/24/20 23 05/22/2023 elect rocar diogr am No observ ation record ed. BARCODE [facility] [address] [place], [address], 05/24/2023 09:38:28 06/06/19 24 06/06/2023 US, echoc ardio gram, trans thora cic, compl ete, w/ color flow No observ ation record ed. [email or web address] [facility] [address] [place], [address], 06/07/2023 17:31:11 07/10/19 24 07/08/2023 mobil e cardi ac telem etry (PROC ) No observ ation record ed. BARCODE Not Available 2023 18:55:30 08/31/19 25 08/30/2024 XR, foot, 3 or more view No observ ation record ed. [email or web address] Not Available 2024 10:41:12 08/31/19 25 08/30/2024 XR, foot, 3 or more view No observ ation record ed. [email or web address] Not Available 2024 10:41:13 09/14/19 25 09/13/2024 CT, ankle , w/wo contr ast [facility] [place] [address] [facility], [place] [address] Patien t Name: VIRAL BOWEN Access ion #: [id number] Sex: M : 1994 7 Dictat ed By: CHARISSA SUZIE Attend ing Physic michael: DIONICIO COVINGTON Physic michael: DIONICIO COVINGTON ER Exam Date: 2024 14:00 PM Exam Name: CT ANKLE LT W/WO Admitt ing Diagno sis(es ): EXAM: CT ANKLE LT W/WO INDICA TION: twiste d lt ankle/ foot TECHNI QUE: Axial images of left ankle with and withou t contra st have been obtain ed along with goldsmith l and sagitt al reform atted images . All CT scans at this facili ty use dose modula tion, iterat carolyn recons tructi on, and/or weight based dosing when approp riate to reduce radiat ion dose to as low as reason ably achiev able. COMPAR BURTON: None FINDIN GS: BONES: No defini tive CT eviden ce of an acute fractu re plane. Multip le well cortic ated ossicl es inferi or to the latera l malleo mariposa compat ible with prior low latera l ankle ligame ntous avulsi ve intrah epatic MUSCLE S: No abnorm al attenu ation. JOINT SPACES : No joint effusi on. TENDON S/LIGA MENTS: Grossl y intact . OTHER: None. IMPRES JESUS: 1. No CT eviden ce of an acute fractu re. 2. Well cortic ated ossicl es inferi or to the latera l malleo mariposa compat ible with prior low latera l ankle ligame ntous avulsi ve injury . Page [address] [facility] [address] [address] Patien t Name: VIRAL BOWEN Access ion #: [id number] Sex: M : 1994 7 Dictat ed By: CHARISSA LARSEN Attend ing Physic michael: NAHUM PAUL Physic michael: ANDRA COVINGTONKRISTEN ER Exam Date: 2024 14:00 PM Exam Name: CT ANKLE LT W/WO Admitt ing Diagno sis(es ): Electr onical ly Signed by: CHARISSA LARSEN at 2024 16:59: 11 PM Page 2 [email or web address] [facility] (Imaging) [address] [place], [address], 09/18/2024 11:33:11 10/30/19 25 10/29/2024 US, abdom en No observ ation record ed. [email or web address] [facility] [address] [place], [address], 11/01/2024 09:37:39 Result Notes Documentation Provider Name and Address Organization Details Recorded Time Ct, Ankle, W/wo Contrast : [facility] [address] [place] [address] Patient Name: VIRAL REAL Sex: M : 1995 Dictated By: CHARISSA LARSEN Attending Physician: ANT COVINGTON Ordering Physician: ANT COVINGTON Exam Date: 09/13/2024 14:00 PM Exam Name: CT ANKLE LT W/WO Admitting Diagnosis(es): EXAM: CT ANKLE LT W/WO INDICATION: twisted lt ankle/foot TECHNIQUE: Axial images of left ankle with and without contrast have been obtained along with coronal and sagittal reformatted images. All CT scans at this facility use dose modulation, iterative reconstruction, and/or weight based dosing when appropriate to reduce radiation dose to as low as reasonably achievable. COMPARISON: None FINDINGS: BONES: No definitive CT evidence of an acute fracture plane. Multiple well corticated ossicles inferior to the lateral malleolus compatible with prior low lateral ankle ligamentous avulsive intrahepatic MUSCLES: No abnormal attenuation. JOINT SPACES: No joint effusion. TENDONS/LIGAMENTS: Grossly intact. OTHER: None. IMPRESSION: 1. No CT evidence of an acute fracture. 2. Well corticated ossicles inferior to the lateral malleolus compatible with prior low lateral ankle ligamentous avulsive injury. Page 1 [facility] [address] [place] [address] Patient Name: VIRAL REAL Sex: M : 1995 Dictated By: CHARISSA LARSEN Attending Physician: NAHUM CAIN Ordering Physician: ANT COVINGTON Exam Date: 09/13/2024 14:00 PM Exam Name: CT ANKLE LT W/WO Admitting Diagnosis(es): Page 2 Agnieszka Real RMA null, [place] [facility] [employer] 09/18/2024 11:33:11 Problems Name Problem SNOMED Code Status Onset Date Resolution Date Notes Provider Name and Address Organization Details Recorded Time Abnormal thyroid hormone 950926116 Active 2022 Agnieszka barber RMA null, [place] - [facility] [employer] 3 15:10:02 Asthma 806471958 Active 2019 Not Available [facility] 3 15:17:16 Wears glasses 152698070 Completed 201907/05/2022 Not Available [facility] 3 15:17:16 Childhood asthma 509211145 Completed 201910/21/2019 Not Available [facility] 3 15:17:16 Morbid obesity 511241622 Active 2022 Agnieszka barber RMA null, [place] - [employer] 3 15:10:06 Ankle pain 246979231 Completed 202007/05/2022 Not Available [facility] 3 15:17:16 Vitamin D deficienc y 22676313 Active 2022 Agnieszka barber RMA null, [place] - [employer] 3 15:10:13 Hypothyro idism 01531676 Active 2022 Not Available [facility] 3 15:17:16 Sprain of foot 41480672 Completed 201907/05/2022 Not Available [employer] 3 15:17:16 Hyperlipi demia 15495706 Active 2022 Agnieszka barber RMA null, [place] [facility] [place] [facility] 3 15:10:04 Sleep apnea 08596340 Active 2020 Not Available [facility] 3 15:17:17 Reduced libido 3296556 Active 2022 Agnieszka barber RMA null, [place] [facility] 3 15:10:08 Fatigue 35936226 Completed Not Available [facility] 3 15:17:17 Conjuncti vitis 6222447 Completed Not Available [facility] 3 15:17:17 Abdominal pain 21502669 Active 2022 Agnieszka barber RMA null, [place] [facility] [place] [facility] 3 13:54:03 Irritable bowel syndrome with diarrhea 938217797 Active 2022 Agnieszka barber RMA null, [place] [facility] 3 13:53:53 Nonulcer dyspepsia 9289875 Active 2022 Agnieszka barber RMA null, [place] [facility] 3 13:54:01 Testoster one level below reference range 396064068 Active 2022 Agnieszka barber RMA null, [place] [facility] 3 13:53:49 Palpitati ons 55668173 Active 2022 Ant Covington MD [address], [facility] [address], [place], [address] , [facility] [place] [facility] 3 13:08:48 Painless rectal bleeding 179217865 Active 2023 Henry clay MD [address], [address], [place], [address] , [facility] [place] [facility] 4 14:29:30 Eruption 979314381 Active 2023 Agnieszka barber RMA null, [place] [facility] 4 16:45:33 Cardiomyo florencio 61320138 Active 2024 Ant Covington MD [address], [address], [place], [address] , [place] [facility] 5 15:52:05 Male hypogonad ism 59398804 Active 2024 Ant Covington MD [address], [address], [place], [address] , [place] [facility] 5 15:52:41 Atypical chest pain 755847539 Active 2024 Ant Covington MD [address], [address], [place], [address] , [place] [facility] 5 15:58:10 Injury of left foot 13608373295 341253 Active 2024 Ant Covington MD [address], [address], [place], [address] , [place] [facility] [place] [facility] 5 16:54:43 Pain of left ankle joint 80140749242 687359 Active 2024 Erinn Shannon LPN null, [place] [facility] 5 10:50:05 Meningiti s 4835635 Active 2024 GABBY Simmons [address], [address], [place], [address] , [facility] [place] [facility] 5 12:18:53 Bacterial infectiou s disease 83148408 Active 2024 GABBY Simmons [address], [address], [place], [address] , [place] [facility] 5 12:42:04 Liver enzymes level above reference range 773966706 Active 2024 GABBY Simmons [address], [address], [place], [address] , [place] [facility] [place] [facility] 5 13:35:30 Primary biliary cholangit is 23531414 Active 2024 GABBY Simmons [address], [address], [place], [address] , [employer] [facility] 5 13:42:35 Liver function tests outside reference range 888154148 Active 2024 CLIFF Simmons-C [address], [address], [place], [address] , [employer] [facility] 13:43:43 Liver function test above reference range 395906000 Active 2024 CLIFF Simmons-C [address], [address], [place], [address] , [employer] [facility] 13:51:50 Injury of left ankle 36207780513 885545 Active 2024 CLIFF Simmons-C [address], [address], [place], [address] , [employer] [facility] 15:55:40 Notes:EYE PROBLEM Problem Notes None recorded. Procedures Surgical History Date Name Laterality Status Provider Name and Address Organization Details Recorded Time Lasik completed Not Available [facility] 06/2022 15:14:11 Imaging Results None recorded. Procedure Notes None recorded. Medical Equipment None Reported. Medications Name Sig Start Date Stop Date Status Note LastModified by Organization Details LastModified Time celecoxib 200 mg capsule TAKE 1 CAPSULE BY MOUTH TWICE DAILY WITH FOOD FOR PAIN 06/26 completed Not Available Not Available Not Available cyclobenz aprine 10 mg tablet TAKE 1 TABLET BY MOUTH AT BEDTIME NEEDED FOR PAIN 06/26 completed Not Available Not Available Not Available doxycycli ne hyclate 100 mg capsule TAKE 1 CAPSULE BY MOUTH TWICE DAILY FOR 7 DAYS active Not Available Not Available No t Available ibuprofen 800 mg tablet TAKE 1 TABLET BY MOUTH THREE TIMES DAILY NEEDED active Not Available Not Available No t Available ofloxacin 0.3 % eye drops INSTILL 1 DROP IN RIGHT EYE FOUR TIMES DAILY AFTER SURGERY 04/20 completed Not Available Not Available Not Available Zithromax 250 mg tablet Take as directed active Not Available Not Available No t Available diphenoxy late-atro pine 2.5 mg-0.025 mg tablet 07/14 completed Not Available Not Available Not Available penicilli n V potassium 500 mg tablet active Not Available Not Available Not Available Flonase 50 mcg/actua tion nasal spray,maulik pension Inhale 1 spray every day by intranas al route. active Not Available Not Available No t Available acetamino phen 300 mg-codein e 30 mg tablet TAKE 1 TABLET BY MOUTH EVERY 6 HOURS NEEDED FOR PAIN 11/02 completed Not Available Not Available Not Available valacyclo vir 500 mg tablet TAKE 1 TABLET BY MOUTH THREE TIMES DAILY FOR 3 DAYS active Not Available Not Available No t Available tramadol 50 mg tablet active Not Available Not Available Not Available triamcino lone acetonide 0.1 % topical cream APPLY THIN LAYER TOPICALL Y TO THE AFFECTED AREA TWICE DAILY active Not Available Not Available No t Available carvedilo l 3.125 mg tablet TAKE 1 TABLET BY MOUTH TWICE DAILY active Not Available Not Available No t Available levothyro xine 75 mcg tablet TAKE 1 TABLET BY MOUTH EVERY DAY 06/26 completed Not Available Not Available Not Available neomycin- bacitraci n-polymyx n 3.5 mg-400 unit-10,0 00 unit/gram eye oint APPLY A SMALL AMOUNT INTO THE CONJUNCT IVAL SAC(S) IN AFFECTED EYE(S) BY OPHTHALM IC ROUTE EVERY 4 HOURS active Not Available Not Available No t Available famotidin e 20 mg tablet 07/14 completed Not Available Not Available Not Available prednisol one acetate 1 % eye drops,maulik pension SHAKE LIQUID AND INSTILL 1 DROP IN RIGHT EYE THREE TIMES DAILY AFTER SURGERY 04/20 completed Not Available Not Available Not Available methocarb denver 750 mg tablet TAKE 1 TABLET BY MOUTH AT BEDTIME 06/26 completed Not Available Not Available Not Available dicyclomi ne 20 mg tablet TAKE 1 TABLET BY MOUTH THREE TIMES DAILY NEEDED 06/26 completed Not Available Not Available Not Available levothyro xine 50 mcg tablet TAKE 1 TABLET BY MOUTH EVERY DAY active Not Available Not Available No t Available pantopraz ole 40 mg tablet,de layed release TAKE 1 TABLET BY MOUTH EVERY DAY IN THE MORNING 06/26 completed Not Available Not Available Not Available hyoscyami ne sulfate 0.125 mg tablet TAKE 1 TABLET BY MOUTH FOUR TIMES DAILY NEEDED FOR DYSPEPSI A 06/26 completed Not Available Not Available Not Available diclofena c sodium 75 mg tablet,de layed release TAKE 1 TABLET BY MOUTH TWICE DAILY WITH FOOD FOR PAIN. DO NOT TAKE WITH IBUPROFE N OR NAPROXEN 06/26 completed Not Available Not Available Not Available ergocalci ferol (vitamin D2) 1,250 mcg (50,000 unit) capsule TAKE 1 CAPSULE BY MOUTH EVERY WEEK 06/26 completed Not Available Not Available Not Available testoster one cypionate 200 mg/mL intramusc ular oil INJECT 1 ML INTO THE MUSCLE EVERY 4 WEEKS active Not Available Not Available No t Available amoxicill in 875 mg-potass ium clavulana te 125 mg tablet TAKE 1 TABLET BY MOUTH TWICE DAILY WITH FOOD 04/20 completed Not Available Not Available Not Available neomycin- polymyxin -hydrocor t 3.5 mg-10,000 unit/mL-1 % ear drops,maulik p INSTILL 4 DROPS IN THE RIGHT EAR EVERY 6 HOURS AND LET SIT FOR 5 TO 10 MINUTES 04/20 completed Not Available Not Available Not Available Fish Oil 1 tab daily 07/14 completed Not Available Not Available Not Available Vitamin D2 2022 active when he remember s Not Available Not Available Not Available Vitamin B12 qd 07/14 completed Not Available Not Available Not Available glucosam 500 mg-chondr oit 66.7 mg-msm 500 mg-boron 2 mg-hyalur o tablet Take 1 tablet every day by oral route. 07/14 completed Not Available Not Available Not Available Zepbound 2.5 mg/0.5 mL subcutane ous pen injector Inject 2.5 mg every week by subcutan eous route. 10/22 completed Not Available Not Available Not Available Vitals Date Recorded Body height Body mass index (BMI) Body weight Body temperature Heart rate Oxygen saturation Oxygen saturation in Arterial blood by Pulse oximetry Systolic And Diastolic Provider Name and Address Organization Details Last Updated DateTime 4 185.42 cm 51.6 kg/m2 408826. 62 g 97.6 [degF] 86 /min 99 % 99 % 128/82 mm[Hg] LILY White [place] [facility] [employer] 4 12:51:40 Date Recorded Body height Body mass index (BMI) Body weight Body temperature Heart rate Oxygen saturation Oxygen saturation in Arterial blood by Pulse oximetry Systolic And Diastolic Provider Name and Address Organization Details Last Updated DateTime 5 185.42 cm 52 kg/m2 538247. 39 g 97.4 [degF] 92 /min 96 % 96 % 118/80 mm[Hg] Agnieszka Davila aston [facility] [employer] [facility] [employer] [facility] 5 15:22:21 Date Recorded Body height Body mass index (BMI) Body weight Body temperature Heart rate Oxygen saturation Oxygen saturation in Arterial blood by Pulse oximetry Systolic And Diastolic Provider Name and Address Organization Details Last Updated DateTime 5 185.42 cm 53.7 kg/m2 087442. 09 g 97.5 [degF] 88 /min 96 % 96 % 110/64 mm[Hg] Agnieszka Davila aston Jose [employer] [facility] [employer] [facility] 5 16:33:46 Date Recorded Body height Body mass index (BMI) Body weight Body temperature Heart rate Oxygen saturation Oxygen saturation in Arterial blood by Pulse oximetry Systolic And Diastolic Provider Name and Address Organization Details Last Updated DateTime 5 185.42 cm 52.8 kg/m2 036378. 95 g 99.9 [degF] 92 /min 98 % 98 % 104/70 mm[Hg] Agnieszka Davila aston Jose [employer] [facility] [employer] [facility] 5 12:06:05 Date Recorded Body height Body mass index (BMI) Body weight Systolic And Diastolic Provider Name and Address Organization Details Last Updated DateTime 05/22/2023 185.42 cm 51.6 kg/m2 801761.62 g 130/84 mm[Hg] Agnieszka Robin [facility] [employer] [facility] [employer] [facility] 05/22/2023 13:06:58 Social History Question Answer Notes LastModified by Organizat ion Details LastModified Time What Is Your Level Of Caffeine Consumption? Moderate [id number] Information not available 08/03/2022 How Much Tobacco Do You Chew? None [id number] Information not available 08/03/2022 What Type Of Diet Are You Following? REGULAR [id number] Information not available 08/03/2022 Which Illicit Or Recreational Drugs Have You Used? NONE [id number] Information not available 08/03/2022 How Much Tobacco Do You Smoke? No [id number] Information not available 08/03/2022 Sex: Male Functional Status Question Answer Note LastModified by Organizat ion Details LastModified Time What is your level of alcohol consumption? Occasional [id number] Information not available 08/03/2022 What is your occupation? [employer] [id number] Information not available 08/03/2022 What is your exercise level? None [id number] Information not available 08/03/2022 Mental Status None recorded. Family History Nothing Reported. Medical History No medical history recorded. Past Encounters Encounter ID Performer Location Encounter Start Date Encounter Closed Date Diagnosis/Indication Diagnosis SNOMED-CT Code Diagnosis ICD10 Code Diagnosis Note [id number] Ant Covington MD [facility] Internal Med [facility] [address] [place] [address] 08/26/2020 00:00:00 08/26/2020 17:06:22 [id number] Lee Marcano DPM [facility] [place] [address] [facility] [address] [place] [address] 08/27/2020 00:00:00 08/27/2020 11:31:15 [id number] Ant Covington MD [facility] Internal Med [address] [place] [address] 04/20/2021 00:00:00 04/20/2021 13:14:54 [id number] Ant Covington MD [facility] Internal Med [facility] [address] [place] [address] 07/14/2022 00:00:00 07/14/2022 17:20:17 [id number] Ant Covington MD [facility] Internal Med [facility] [address] [place] [address] 09/19/2022 15:08:53 09/19/2022 15:46:11 Abdominal pain 50750250 R10.9 as below Irritable bowel syndrome with diarrhea 938464269 K58.0 metamucil daily Hypothyroidism 97944225 E03.9 on meds Nonulcer dyspepsia 98553 07 K30 [id number] Ant Covington MD [facility] Internal [address] [place] [address] 05/22/2023 12:48:21 05/22/2023 13:40:13 Palpitations 42011544 R00.2 MAY NEED HOLTER Hyperlipid emia screening 503505311 Z13.220 Testostero ne level below reference range 523977967 R89.1 [id number] Henry clay MD [facility] General Surgery [address] [place] [address] 06/08/2023 12:49:43 06/08/2023 14:42:56 Painless rectal bleeding 145944860 K62.5 [id number] Ant Covington MD [facility] Internal [address] [address] 06/26/2024 15:14:30 06/26/2024 15:58:56 Sleep apnea 65474732 G47.30 could not tolerate cpap, weight loss would help him to correct sleep apnea, will try meds and diet Cardiomyopathy 49326178 I42.9 no symptoms Male hypogonadism 862418 06 E29.1 going to restart meds and labs 2 months after Hypothyroidism 46933962 E03.9 on meds Atypical chest pain 1025 61009 R07.89 resolved [id number] Ant Covington MD [facility] Internal [address] [address] 09/02/2024 16:25:14 09/04/2024 12:35:33 Injury of left foot 6719675951 9625170 S99.922A keep taking ibuprofen, precaution [id number] Ant Covington MD [facility] Internal [address] [address] 10/22/2024 11:55:26 10/22/2024 12:51:58 Bacterial infectious disease 98431245 A49.9 Take medication as discussed. Finish full course of antibiotic s. 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 Avoid sharing of personal products at this time. Liver enzy mes level above reference range 760233217 R74.8 labs ordered at this time Liver func tion tests outside reference range 259962095 R79.89 Health Concerns Section Related Observation LastModified by Organization Detai ls LastModified Time None Recorded Concern Status LastModified by Organization Details LastModified Time None Recorded Advance Directives Directive None Recorded Payers Insurance Date Sequence Insurance Name Policy Number Policy Rose Covered Member ID Rose Member ID Guarantor Name 12/04/2024 1 [facility] (MEDICAID HMO) [id number] [employer] [id number] [employer] Notes Date Note Type Note Provider Name and Address Organization Details Recorded Time 05/22/2023 text/html Pt is here today C/o palpitations off and on. More so at night usually comes and then goes but last night was happening all night to the point it kept waking him up through out the night,usually happens for 30 min but last night lasted all night long.Not using CPAPDenies any chest painsNO ANXIETY Ant Covington MD [address], [place], [address], [employer] 05/22/2023 16:52:00 06/08/2023 text/html patient complain s of bleeding per rectum with bowel movements for the last few days. Has had this issue in the past usually a few times a year. Had colonoscopy approximately 5 months ago without any abnormality. Denies any anal pain burning itching or any other symptoms. Was told he had irritable bowel Henry Mendiola MD [address], [address], [place], [address], [employer] 06/08/2023 14:33:45 06/26/2024 text/html Pt is here today for a ER follow upHe went to [facility] for chest pains.EKG, Labs and CXR was done. CXR showed Mild cardiomegaly with questionable mild pulmonary vascular congestion.Pt states that some times he feels a bludge of some kind on his left side of his stomach. No pain just real irritable and sore the day after.Denies any chest pain, SOB No headache or dizziness.Would also like to discuss Zepbound if his insurance will cover it. Will need to be prescribed for sleep apneaNeeds labs. Has not been taking his thyroid meds or testosterone injectionHe has some stress.Not using cpap, can't use itHas cardiomyopathy, seen Dr charles, did not start carvedilol Ant Covington MD [address] [facility], [facility] [address], [place], [address], [employer] 06/26/2024 15:58:32 09/02/2024 text/html Pt is here today for left foot pain. Fell in a hole 4 months ago and has not been right since.Went to Urgent care last Monday, did xrays and was told nothing is broken.He had some swellingtaking ibuprofen but pain is not improving, getting worse Ant Covington MD [address], [facility] [address], [place], [address], [employer] 09/02/2024 16:58:11 10/22/2024 text/html Patient is 29y/o male who is here for sick visit. Patient reports going to the ER on Monday with fever or 104.8. Patient had gone to U and had left. On Monday he had gone to [facility]. He was given fluids, medications and labs at this time. Patient states that at this time he is feeling the same without improvements. Patient reports that he has been drinking lots of fluids and using NSAIDs at this time. Patient denies abdominal pain, rashes, congestion, or neck stiffness. He does report head ache at this time. [id number] lowlikely viral at this time per hospital.AST/ALT elevated was out in [place], no new rash at this time denies sick contacts Began Monday- dizzy, sweating, 3-4hrsSlu- triage with IV fluids- labs chest xray - AMA GABBY Simmons [address] [facility], [address], [place], [address], [employer] 10/22/2024 14:51:31
--- OUTSIDE RECORDS SUMMARY | 2024-12-12 06:40 | XMS_ITS | Encounter Summary ---
Author Organization [facility] Address [address] [place] [address] Care Team Providers Care Garment Sorter Name Role Phone Derrell Stanley MD Primary Care Provider [phone] Encounter Details Date Type Department Care Team (Late st Contact Info) Description 08/04/[address] [facility] Pediatrics [facility] [address] [place] [address] Vega Adame MD [address] [place] [address] Social History Tobacco Use Types Packs/Day Years Used Date Smoking Tobacco: Never Assessed Sex and Gender Information Value Date Recorded Sex Assigned at Not on file Legal Sex Male 3:50 AM [employer] Gender Identity Not on file Sexual Orientation Not on file documented as of this encounter Plan of Treatment Not on file documented as of this encounter Visit Diagnoses Not on filedocumented in this encounter Care Teams Garment Sorter Relationship Specialty Start Date End Date Derrell Stanley MD [address] [facility] [address] [place] [address] PCP - General Family Practice 10/27/09 documented as of this encounter
--- OUTSIDE RECORDS SUMMARY | 2024-12-12 06:40 | XMS_ITS | Clinical Summary ---
Author Organization [facility] Address [address] [place] [address] Care Team Providers Care Sandblast Or Shotblast Equipment Tender Name Role Phone Narayan Covington MD Primary Care Provider Source Comments [facility],non-owned Affiliates and Associated Physician Practices is amultiple site organization consisting of ambulatory clinics and hospital sitesin [place], [place], [place] and [place]. This disclosure is being madepursuant to the Care Everywhere program and may not contain all information available regarding this patient. Last updated 18.[facility] [employer] Allergies Active Allergy Reactions Criticality Noted Date Comments Banana Itching 08/29/2022 vomit Encounters Date Type Department Care Team Description 10/20/2024 3:40 AM CDT - 10/20/2024 4:00 AM CDT Emergency [facility] [address] [place] [phone] Shortness of breath Discharge Disposition: Left Against Medical Advice/Discontinued Care from Last 3 Months Immunizations Immunization Administration Dates Next Due TDAP (7yrs+) 08/29/2022 Social History Tobacco Use Types Packs/Day Years Used Date Smoking Tobacco: Never Smokeless Tobacco: Never Tobacco Cessation:Counseling Given: Not Answered Alcohol Use Standard Drinks/Week Comments Not Currently 0 (1 standard drink = 0.6 oz pur e alcohol) Sex and Gender Information Value Date Recorded Sex Assigned at Not on file Legal Sex Male 1:39 AM CDT Gender Identity Not on file Sexual Orientation Not on file Last Filed Vital Signs Vital Sign Reading Time Taken Comments Blood Pressure 119/80 10/20/2024 3:15 AM CDT Pulse 77 10/20/2024 3:15 AM CDT Temperature 36.6 C (97.9 F) 10/20/2024 3:15 AM CDT Respiratory Rate 18 10/20/2024 3:15 AM CDT Oxygen Saturation 100% 10/20/2024 3:15 AM CDT Inhaled Oxygen Concentration - - Weight 181.4 kg (400 lb) 10/19/2024 8:17 PM CDT Height 185.4 cm (6' 1) 10/19/2024 8:17 PM CDT Body Mass Index 52.77 10/19/2024 8:17 PM CDT Plan of Treatment Health Maintenance Due Date Last Done Comments HIV SCREENING 2008 HEPATITIS C SCREENING 04/01/2011 HEPATITIS B VACCINE (1 of 3 - 19+ 3-dose series) 2012 COVID-19 VACCINE (2023-2 5 season) 2024 DEPRESSION SCREENING 06/05/2024 INFLUENZA VACCINE (#1) 2025 DTAP/TDAP/TD VACCINES (2 - T d or Tdap) 08/29/2032 08/29/2022 ZOSTER VACCINE (1 of 2) 2043 HIB VACCINE Aged Out No longer eligi ble based on patient's age to complete this topic HPV VACCINE Aged Out No longer eligi ble based on patient's age to complete this topic MENINGOCOCCAL (Group B) VACC INE SHARED DECISION-MAKING Aged Out No longer eligibl e based on patient's age to complete this topic MENINGOCOCCAL GROUPS A/C/Y/W VACCINE Aged Out No longer eligible b ased on patient's age to complete this topic PNEUMOCOCCAL VACCINE Aged Out No long er eligible based on patient's age to complete this topic Procedures Procedure Name Priority Date/Time Associated Diagnosis Comments LACTIC ACID BLOOD REFLEX TO REPEAT STAT 10/19/2024 11:26 PM CDT COMPREHENSIVE METABOLIC PANEL STAT 10/19/2024 11:26 PM CDT CBC W AUTO DIFFERENTIAL STAT 10/19/2024 11:26 PM CDT SARS-COV-2 (COVID-19)+INFLU A+B PCR RAPID STAT 10/19/2024 11:26 PM CDT XR CHEST 2VW STAT 10/19/2024 9:28 PM CDT Shortness of breath from Last 3 Months Results * SARS-COV-2 (COVID-19)+INFLU A+B PCR RAPID (10/19/2024 11:26 PM CDT) COVID-19 PCR Not detected Not detected 10/21/19 12:12 AM CDT [facility] Influenza A Rapid MOSHE Not Detected Not Detected 10/20/2024 12:12 AM CDT [facility] Influenza B MOSHE Rapid Not Detected Not Detected 10/20/2024 12:12 AM CDT [facility] Microbiology SPECIMEN FROM NASOPHARYNGEAL STRUCTURE / Unknown Collection / Unknown 10/19/2024 11:26 PM CDT 10/19/2024 11:34 PM CDT Narrative [facility] - 10/20/2024 12:12 AM CDT Influenza assay performed by Nucleic Acid Amplification. Results do not exclude the possibility of a mixed viral infection. NOTE: Detecting and identifying specific viral nucleic acids from individuals exhibiting signs and symptoms of respiratory infection aids in the diagnosis of respiratory infection, if used in conjunction with other clinical and laboratory findings. The results of this test should not be used as the sole basis for diagnosis, treatment, or patient management decisions. This nucleic acid amplification assay performance was validated by [facility]. This test has been authorized by the Food and Drug administration (FDA)under an Emergency Use Authorization (EUA). This test has been validated in accordance with the FDA's guidance document Policy for Diagnostic Testing in Laboratories Certified to perform High Complexity Testing under CLIA prior to Emergency Use Authorization for Coronavirus Disease-2019 during the Public Health Emergency issued on August 03, 2019. FDA independent review of this validation is pending. This test is only authorized for the duration of time the declaration that circumstances exist justifying the authorization of emergency use of in vitro diagnostic tests for detection of SARS-CoV-2 virus and/or diagnosis of COVID-19 infection under section 564(b)(1) of the Act, 21 U.S.C 360bbb-3 (b)(1), unless the authorization is terminated or revoked sooner. Fact Sheets for this EUA assay are available upon request. us Shazia Bonilla APRN-MASH TUB COOKER OPERATOR LAB - MICROBIOLOGY O RDERABLES Final Result Performing Organization Address [facility]/ZIP Co de Phone Number [facility] [address] [place] [phone], [facility] [phone] * LACTIC ACID BLOOD REFLEX TO REPEAT (10/19/2024 11:26 PM CDT) [facility] Lactic Acid-Stat 0.7 <=2.0 mmol/L 10/20/2024 12:03 AM CDT [facility] Blood BLOOD SPECIMEN / Unknown Venipuncture / Unknown 10/19/2024 11:26 PM CDT 10/19/2024 11:35 PM CDT Shazia Bonilla AFRICANA STUDIES PROFESSOR-[facility] LAB - CHEMISTRY ORDE RABLES Final Result Performing Organization Address [facility]/ZIP Co de Phone Number [address] [address], [facility] [phone] * (ABNORMAL) CBC W AUTO DIFFERENTIAL (10/19/2024 11:26 PM CDT) [facility] WBC 3.6(L) 4.0 - 10.7 x10E9/L 10/19/2024 11:41 PM CDT [facility] RBC Count 4.88 4.30 - 5.80 x10E12/L 10/19/2024 11:41 PM CDT [facility] Hemoglobin 14.2 13.3 - 17.5 g/dL 10/19/2024 11:41 PM CDT [facility] Hematocrit 40.9 38.7 - 51.1 % 10/19/2024 11:41 PM CDT [facility] MCV 83.8 80.0 - 98.0 fL 10/19/2024 11:41 PM CDT [facility] MCH 29.1 26.7 - 33.6 pg 10/19/2024 11:41 PM [facility] MCHC 34.7 31.7 - 36.3 g/dL 10/19/2024 11:41 PM [facility] RDW-CV 13.2 11.3 - 14.8 % 10/19/2024 11:41 PM [facility] Platelet Count 179 150 - 420 x10E9/L 10/19/2024 11:41 PM [facility] MPV 9.6 7.8 - 11.4 fL 10/19/2024 11:41 PM [facility] Neutrophil % 60.2 41.0 - 74.0 % 10/19/2024 11:41 PM [facility] Lymphocyte % 29.2 17.0 - 47.0 % 10/19/2024 11:41 PM [facility] Monocyte % 10.0 3.0 - 11.0 % 10/19/2024 11:41 PM [facility] Eosinophil % 0.0 0.0 - 7.0 % 10/19/2024 11:41 PM [facility] Basophil % 0.3 0.0 - 1.6 % 10/19/2024 11:41 PM [facility] Immature Granulocytes % 0.3 0.0 - 1.0 % 10/19/2024 11:41 PM [facility] Neutrophil Absolute 2.16 1.60 - 7.50 x10E9/L 10/19/2024 11:41 PM [facility] Lymphocyte Absolute 1.05 1.00 - 4.40 x10E9/L 10/19/2024 11:41 PM [facility] Monocyte Absolute 0.36 0.15 - 1.00 x10E9/L 10/19/2024 11:41 PM [facility] Eosinophil Absolute 0.00 0.00 - 0.60 x10E9/L 10/19/2024 11:41 PM [facility] Basophil Absolute 0.01 0.00 - 0.13 x10E9/L 10/19/2024 11:41 PM [facility] Blood BLOOD SPECIMEN / Unknown Venipuncture / Unknown 10/19/2024 11:26 PM CDT 10/19/2024 11:35 PM CDT us Shazia Bonilla AFRICANA STUDIES PROFESSOR-MASH TUB COOKER OPERATOR LAB - HEMATOLOGY ORD ERABLES Final Result [facility] [address] [place] [address], [facility] [phone] * (ABNORMAL) COMPREHENSIVE METABOLIC PANEL (10/19/2024 11:26 PM CDT) BUN 10 7 - 26 mg/dL 10/20/2024 12:04 AM [facility] Creatinine 1.04 0.71 - 1.16 mg/dL 10/20/2024 12:04 AM [facility] Sodium 139 136 - 145 mmol/L 10/20/2024 12:04 AM [facility] Potassium 4.0 3.5 - 4.5 mmol/L 10/20/2024 12:04 AM [facility] Chloride 108(H) 98 - 107 mmol/L 10/20/2024 12:04 AM [facility] CO2 20(L) 22 - 29 mmol/L 10/20/2024 12:04 AM [facility] Glucose 102(H) 70 - 99 mg/dL 10/20/2024 12:04 AM [facility] Calcium 8.7 8.4 - 10.2 mg/dL 10/20/2024 12:04 AM [facility] Protein Total 7.1 6.0 - 8.3 g/dL 10/20/2024 12:04 AM [facility] Albumin 3.8 3.4 - 5.0 g/dL 10/20/2024 12:04 AM [facility] Bilirubin Total 0.6 0.2 - 1.2 mg/dL 10/20/2024 12:04 AM [facility] Alkaline Phosphatase 72 40 - 150 U/L 10/20/2024 12:04 AM [facility] ALT 33 5 - 55 U/L 10/20/2024 12:04 AM [facility] AST 33 5 - 34 U/L 10/20/2024 12:04 AM [facility] Anion Gap 11 6 - 16 10/20/2024 12:04 AM T [facility] BUN/Creatinine Ratio 10 7 - 23 10/20/2024 12:04 AM T [facility] Osmolality Calculated 287 275 - 295 mOsm/kg 10/20/2024 12:04 AM T [facility] Albumin/Globulin Ratio 1.2 1.1 - 2.3 10/20/2024 12:04 AM T [facility] eGFR by CKD-EPI >90 >=90 mL/min/1.7 3 m2 10/20/2024 12:04 AM T [facility] Blood BLOOD SPECIMEN / Unknown Venipuncture / Unknown 10/19/2024 11:26 PM CDT 10/19/2024 11:35 PM CDT Shazia Bonilla AFRICANA STUDIES PROFESSOR-MASH TUB COOKER OPERATOR LAB - CHEMISTRY ORDE RAUL Final Result [address] [address], [facility] [phone] * XR CHEST 2VW (10/19/2024 9:28 PM CDT) Anatomical Region Laterality Modality Chest Digital Radiogra phy 10/19/2024 9:36 PM CDT Narrative 10/19/2024 9:49 PM CDT PROCEDURE: XR CHEST 2VW, DATE/TIME OF EXAM: 10/19/2024 9:29 PM, LOCATION [facility] INDICATION: R06.02: Shortness of breath ADDITIONAL CLINICAL INFORMATION: Ordering Provider Reason For Exam: r/o pneumonia COMPARISON: None. FINDINGS/IMPRESSION: There is no focal consolidation, pleural effusion, or pneumothorax. The cardiomediastinal silhouette is normal. The visible bony thorax is intact. Report dictated by Buzz Galeas MD, (Quenching Car Operator). IElise MD have personally reviewed and interpreted this examination/study. > Interpreting Provider: Elise Bailey MD on 10/19/2024 9:49 PM Procedure Note Elise Bailey MD - 10/19/2024 PROCEDURE: XR CHEST 2VW, DATE/TIME OF EXAM: 10/19/2024 9:29 PM, LOCATION [facility] INDICATION: R06.02: Shortness of breath ADDITIONAL CLINICAL INFORMATION: Ordering Provider Reason For Exam: r/o pneumonia COMPARISON: None. FINDINGS/IMPRESSION: There is no focal consolidation, pleural effusion, or pneumothorax. The cardiomediastinal silhouette is normal. The visible bony thorax isintact. Report dictated by Buzz Galeas MD, (Quenching Car Operator). I, Elise Bailey MD have personally reviewed and interpreted this examination/study. > Interpreting Provider: Elise Bailey MD on 10/19/2024 9:49 PM Shazia Bonilla AFRICANA STUDIES PROFESSOR-MASH TUB COOKER OPERATOR DIAGNOSTIC IMAGING O RDERABLES Final Result from Last 3 Months Insurance [facility] [employer] Care Teams Sandblast Or Shotblast Equipment Tender Relationship Specialty Start Date End Date Narayan Covington MD [address] [place] [address] PCP - General Internal Medicine 08/29/22
--- OUTSIDE RECORDS SUMMARY | 2024-12-12 06:40 | XMS_ITS | Encounter Summary ---
Author Organization [facility] Address [address] [place] [address] Care Team Providers Care Information Security Name Role Phone Derrell Stanley MD Primary Care Provider [phone] Encounter Details Date Type Department Care Team (Late st Contact Info) Description 01/10/2007 Outpatient Historical [facility] Pediatrics [facility] [address] [place] [address] Vega Adame MD [id number] [place] [address] Social History Tobacco Use Types Packs/Day Years Used Date Smoking Tobacco: Never Assessed Sex and Gender Information Value Date Recorded Sex Assigned at Not on file Legal Sex Male 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
--- OUTSIDE RECORDS SUMMARY | 2024-12-12 06:40 | XMS_ITS | Encounter Summary ---
Author Organization [facility] Address [address] [place] [address] Care Team Providers Care Airport Operations Crew Member Name Role Phone Derrell Stanley MD Primary Care Provider [phone] Encounter Details Date Type Department Care Team (Late st Contact Info) Description 11/17/2004 Outpatient [facility] Pediatrics [facility] [address] [place] [address] Vega Adame MD 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
--- OUTSIDE RECORDS SUMMARY | 2024-12-12 06:40 | XMS_ITS | Clinical Summary ---
Author Organization [facility] Address [address] [place] [address] Care Team Providers Care Oil Field Pipeline Supervisor Name Role Phone Derrell Stanley MD Primary Care Provider [phone] Allergies No known active allergies Medications No known medications Immunizations Immunization Administration Dates Next Due (ADACEL/BOOSTRIX)(10 YR UP) TDAP VACCINE, 0.5ML, IM 02/16/2005 (INFANRIX)(6 WKS-6 YRS) DIPT HERIA, TETANUS TOXOIDS, AND ACCELLULAR PERTUSSIS VACCINE (DTAP), 0.5 ML IM 12/12/1997,01/17/1995,01/31/1994,1993,1993 (IPOL)(6 WKS AND UP) POLIOVI MIKE VACCINE, INACTIVATED (IPV), 3 DOSE, SUBCUT OR IM 01/17/1995,01/31/1994,1993,1993 (M-M-R II/PRIORIX)(12 MO UP) MEASLES, MUMPS AND RUBELLA VIRUS VACCINE, 0.5 ML IM/SUBCUT 12/12/1997,01/17/1995 (VARIVAX)(12 MOS UP)VARICELL A VIRUS VACCINE (PF) 0.5 ML, SUB CUT 01/24/2008 HIB, Unspecified Formulation 01/17/1995, 01/31/1994,1993,1993 Hepatitis B Vaccine 1993,1993,1992 IPV/OPV 12/12/1997 Social History Tobacco Use Types Packs/Day Years Used Date Smoking Tobacco: Never Assessed Sex and Gender Information Value Date Recorded Sex Assigned at Not on file Legal Sex Male 3:50 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 Gender Identity Not on file Sexual Orientation Not on file Last Filed Vital Signs Vital Sign Reading Time Taken Comments Blood Pressure 112/86 01/06/2009 8:45 AM CDT Pulse 82 01/06/2009 8:45 AM CDT Temperature 36.7 C (98.1 F) 01/06/2009 8:45 AM CDT Respiratory Rate 16 01/06/2009 8:45 AM CDT Oxygen Saturation - - Inhaled Oxygen Concentration - - Weight 117 kg (258 lb) 01/06/2009 8:45 AM CDT Height 176.5 cm (5' 9.5) 01/06/2009 8:45 AM CDT Body Mass Index 37.55 01/06/2009 8:45 AM CDT Plan of Treatment Health Maintenance Due Date Last Done Comments DTAP/TDAP/TD VACCINES (7 - Td or Tdap) 02/16/2015 02/16/2005, 12/12/1997, 01/17/1995, Additional history exists INFLUENZA VACCINE (#1) 2025 HEPATITIS B VACCINES Completed 1993, 1993, 1993 HPV VACCINES Aged Out No longer eligi ble based on patient's age to complete this topic Care Teams Oil Field Pipeline Supervisor Relationship Specialty Start Date End Date Derrell Stanley MD [address] [place] [phone] PCP - General Family Practice 10/27/09
--- OUTSIDE RECORDS SUMMARY | 2024-12-12 06:40 | XMS_ITS | Encounter Summary ---
Author Organization [facility] Address [address] [place] [address] Care Team Providers Care Salt Refiner Name Role Phone Derrell Stanley MD Primary Care Provider [phone] Encounter Details Date Type Department Care Team (Late st Contact Info) Description 01/10/2007 Outpatient Historical [facility] Pediatrics [facility] [address] [place] [address] Vega Adame MD [address] [place] [address] Social History Tobacco Use Types Packs/Day Years Used Date Smoking Tobacco: Never Assessed Sex and Gender Information Value Date Recorded Sex Assigned at Not on file 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
--- OUTSIDE RECORDS SUMMARY | 2024-12-12 06:40 | XMS_ITS | Clinical Summary ---
Author Organization [facility] Address [address] [place] [address] Care Team Providers Care Hris Analyst Name Role Phone Provider, None Primary Care Provider Unavailabl e Allergies No known active allergies Medications HYDROcodone-acet aminophen (NORCO) 5-325 MG Tablet TK 1 T PO Q 4 TO 6 H PRN FOR SEVERE PAIN 0 07/25/2018 Active Active Problems No known active problems Social History Tobacco Use Types Packs/Day Years Used Date Smoking Tobacco: Some Days Cigars Smokeless Tobacco: Never Alcohol Use Standard Drinks/Week Comments Yes 0 (1 standard drink = 0.6 oz pur e alcohol) AUDIT-C Answer Date Recorded Frequency of Alcohol Consumption Monthly or less 10/18/2018 Average Number of Drinks Not on file 019 Frequency of Binge Drinking Not on file 10/03 Sex and Gender Information Value Date Recorded Sex Assigned at Not on file Legal Sex Male 3:07 PM CDT Gender Identity Not on file Sexual Orientation Not on file Last Filed Vital Signs Vital Sign Reading Time Taken Comments Blood Pressure 113/78 10/18/2018 3:32 PM CDT Pulse 85 10/18/2018 3:32 PM CDT Temperature 37.3 C (99.1 F) 10/18/2018 3:32 PM CDT Respiratory Rate 20 10/18/2018 3:32 PM CDT Oxygen Saturation 96% 10/18/2018 3:32 PM CDT Inhaled Oxygen Concentration - - Weight 182.5 kg (402 lb 4.8 oz) 10/18/2018 3:32 PM CDT Height 185.4 cm (6' 1) 10/18/2018 3:32 PM CDT Body Mass Index 53.08 10/18/2018 3:32 PM CDT Plan of Treatment Health Maintenance Due Date Last Done Comments Hepatitis C Virus (HCV) Screening 1993 TdaP Immunization 1993 Human Papillomavirus (HPV) Immunization (1 - Male 3-dose series) 2008 SARS-COV-2 Immunization (1 - season) 2024 Influenza Immunization (#1) 2025 Respiratory Syncytial Virus (RSV) Immunization (Adult) (1 - 1-dose 75+ series) 2068 Hepatitis B Immunization Completed 994, 1993, 1993 DTaP/Tdap/Td Immunization Discontinued 1995, 01/17/1994, 1993, Additional history exists Meningococcal Immunization (ACWY) Aged Out No longer eligible based on patient's age to complete this topic Pneumococcal Immunization Combined Aged Out No longer eligible based on patient's age to complete this topic Rotavirus Immunization Aged Out No lo nger eligible based on patient's age to complete this topic Insurance Care Teams Hris Analyst Relationship Specialty Start Date End Date Provider, None [place] PCP - General 10/18/18
--- OUTSIDE RECORDS SUMMARY | 2024-12-12 06:40 | XMS_ITS | Encounter Summary ---
Author Organization [facility] Address [address] [place] [address] Care Team Providers Care Special Inspector Name Role Phone Derrell Stanley MD Primary Care Provider [phone] Encounter Details Date Type Department Care Team (Latest Contact Info) Description 09/10/2007 Outpatient Historical HIS [facility] Mila Adame MD [address] 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 Gender Identity Not on file Sexual Orientation Not on file documented as of this encounter Plan of Treatment Not on file documented as of this encounter Procedures Procedure Name Priority Date/Time Associated Diagnosis Comments XR FINGER THUMB RIGHT Routine 09/10/2007 3:51 PM CDT documented in this encounter Results * XR FINGER THUMB RIGHT (09/10/2007 3:51 PM CDT) Anatomical Region Laterality Modality Wrist / Hand Other 09/10/2007 3:51 PM CDT Narrative 09/11/2007 9:01 AM CDT [facility] [address] [place], [place] [address] Admit Date: 09/10/2007 VIRAL REAL Sex: M Admit Prov: MILA ADAME Date: 1995 Primary Care Prov: MILA ADAME CMRN: [id number] [id number] [facility] Ordering Prov: N/A Accession Number: [id number] Interpretation Right index finger, 3 projections, 09/10/2007 Clinical History: Finger injury. Pain. There is an avulsion fracture off of the volar base of the epiphysis for the middle phalanx of the right index finger with soft tissue swelling of that finger proximally. There is no displacement or malalignment. Conclusion: Avulsion fracture base of the middle phalanx right index finger. . Dictated by: DMITIR KEITH 09/10/2007 16:32 Electronically signed by: DMITRI KEITH 09/11/2007 09:01 Transcribed: 09/10/2007 17:44 AMK Procedure Note Provider, Historical - 09/11/2007 [address] [place], [place] [address] Admit Date: 09/10/2007 VIRAL REAL Sex: M Admit Prov: MILA ADAME Date: 1995 Primary Care [id number] [id number] IM[facility] SERVICES Ordering Prov: N/A Interpretation Right index finger, 3 projections, 09/10/2007 Clinical History: Finger injury. Pain. There is an avulsion fracture off of the volar base of the epiphysisfor the middle phalanx of the right index finger with soft tissueswelling of that finger proximally. There is no displacement or malalignment. Conclusion: Avulsion fracture base of the middle phalanx right index finger. . Dictated by: DMITRI KEITH 09/10/2007 16:32 Electronically signed by: DMITRI KEITH 09/11/2007 09:01 Transcribed: 09/10/2007 17:44 AMK Mila Adame MD DIAGNOSTIC IMAGING ORDERABLES F inal Result documented in this encounter Visit Diagnoses Diagnosis Injury, other and unspecified, finger documented in this encounter Care Teams Special Inspector Relationship Specialty Start Date End Date Markollari, Derrell, MD [address] [facility] [address] [place] [address] PCP - General Family Practice 10/27/09 documented as of this encounter
--- OUTSIDE RECORDS SUMMARY | 2024-12-12 06:40 | XMS_ITS | Encounter Summary ---
Author Organization [facility] Address 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
--- OUTSIDE RECORDS SUMMARY | 2024-12-12 06:40 | XMS_ITS | Encounter Summary ---
Author Organization [facility] Address [address] [place] [address] Care Team Providers Care Geophysical Party Chief Name Role Phone Derrell Stanley MD Primary Care Provider [phone] Encounter Details Date Type Department Care Team (Latest Contact Info) Description 02/22/2006 Outpatient [facility] [address] [facility] [facility] [address] [place] [address] Vega Adame MD [id number] [place] [address] Acute Pharyngitis (Primary Dx) Social History Tobacco Use Types Packs/Day Years Used Date Smoking Tobacco: Never Assessed Sex and Gender Information Value Date Recorded Sex Assigned at Not on file 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
--- OUTSIDE RECORDS SUMMARY | 2024-12-12 06:40 | XMS_ITS | Encounter Summary ---
Author Organization [facility] Address [address] [place] [address] Care Team Providers Care Director Customer Name Role Phone Derrell Stanley MD Primary Care Provider [phone] Encounter Details Date Type Department Care Team (Late st Contact Info) Description 07/11/[address] 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
--- OUTSIDE RECORDS SUMMARY | 2024-12-12 06:40 | XMS_ITS | Encounter Summary ---
Author Organization [facility] Address 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 Gender Identity Not on file Sexual Orientation Not on file documented as of this encounter Plan of Treatment Not on file documented as of this encounter Procedures Procedure Name Priority Date/Time Associated Diagnosis Comments CELIAC DISEASE ANTIBODIES Routine 02/12/2007 1:19 PM CDT CBC WITH DIFFERENTIAL Routine 02/12/2007 1:19 PM CDT CBC WITH DIFFERENTIAL Routine 02/12/2007 1:19 PM CDT SEDIMENTATION RATE Routine 02/12/2007 1: 19 PM CDT C-REACTIVE PROTEIN Routine 02/12/2007 1: 19 PM CDT documented in this encounter Results * CELIAC DISEASE ANTIBODIES (02/12/2007 1:19 PM CDT) TRANSGLUTAMINASE IGA AB <3 <5 U/mL INTERFACE SYSTEM Comment: Reference range: <5 U/mL Negative 5-8 U/mL Equivocal >8 U/mL Positive Lab test performed by: [facility] [address] AMANDA RODRIGUEZ MD GLIADIN IGA AB 5 <11 U/mL INTER FACE SYSTEM Comment: Reference Range: <11 U/mL Negative 11-17 U/mL Equivocal >17 U/mL Positive Lab test performed by: [facility] [address] AMANDA RODRIGUEZ MD IGA 140 70 - 432 mg/dL INTERFACE SYSTEM Comment: Lab test performed by: [facility] [address] AMANDA RODRIGUEZ MD 02/12/2007 1:19 PM CDT Ivonne Orozco MD CHEMISTRY ORDERABLES Edited Performing Organization Address [facility] de Phone Number INTERFACE SYSTEM Refer to clinic/hospital department * CBC WITH DIFFERENTIAL (02/12/2007 1:19 PM CDT) [facility] NEUTROPHILS 43 36 - 74 % INTERFAC E SYSTEM LYMPHOCYTES 43 18 - 53 % INTERFAC E SYSTEM MONOCYTES 11 2 - 13 % INTERFACE SYSTEM EOSINOPHILS 2 2 - 12 % INTERFAC E SYSTEM BASOPHILS 0 0 - 3 % INTERFACE SYSTEM NEUTROPHIL ABSOLUTE 2.07 K/uL INTERFACE SYSTEM LYMPHOCYTE ABSOLUTE 2.10 K/uL INTERFACE SYSTEM MONOCYTE ABSOLUTE 0.55 K/uL INTERFACE SYSTEM EOSINOPHIL ABSOLUTE 0.11 K/uL INTERFACE SYSTEM BASOPHILS ABSOLUTE 0.02 K/uL INTERFACE SYSTEM 02/12/2007 1:19 PM CDT Ivonne Orozco MD HEMATOLOGY ORDERABLES Edited Performing Organization Address [facility] Phone Number INTERFACE SYSTEM Refer to clinic/hospital department * (ABNORMAL) CBC WITH DIFFERENTIAL (02/12/2007 1:19 PM CDT) Pathologist [facility] WBC 4.9 4.0 - 9.8 K/uL INTERFACE SYSTEM RBC 4.37(L) 4.50 - 5.40 M/uL INTERFACE SYSTEM HEMOGLOBIN 12.2(L) 13.6 - 16.5 g/dL INTERFACE SYSTEM HEMATOCRIT 34.9(L) 40.0 - 48.0 % INTERFACE SYSTEM MCV 79.9(L) 82.0 - 99.0 fL INTERFACE SYSTEM MCH 27.9 27.2 - 32.6 pg INTERFACE SYSTEM MCHC 35.0 31.5 - 35.5 % INTERFACE SYSTEM RDW 13.0 11.5 - 14.5 % INTERFACE SYSTEM RDW-STDEV 37.6 37.1 - 48.7 fL INTERFACE SYSTEM PLATELETS 257 140 - 350 K/uL INTERFACE SYSTEM MPV 9.8 9.3 - 12.4 fL INTERFACE SYSTEM 02/12/2007 1:19 PM CDT Ivonne Orozco MD HEMATOLOGY ORDERABLES Edited Performing Organization Address [facility] Phone Number INTERFACE SYSTEM Refer to clinic/hospital department * (ABNORMAL) SEDIMENTATION RATE (02/12/2007 1:19 PM CDT) ESR (SEDIMENTATION RATE) 29(H) 0 - 20 mm/hr INTERFACE SYSTEM 02/12/2007 1:19 PM CDT Result [facility] Ivonne Orozco MD HEMATOLOGY ORDERABLES Edited Performing Organization Address [facility] Phone Number INTERFACE SYSTEM Refer to clinic/hospital department * (ABNORMAL) C-REACTIVE PROTEIN (02/12/2007 1:19 PM CDT) CRP 1.2(H) 0.0 - 0.8 mg/dL INTERFACE SYSTEM 02/12/2007 1:19 PM CDT Ivonne Orozco MD CHEMISTRY ORDERABLES Edited Performing Organization Address [facility] Phone Number INTERFACE SYSTEM Refer to clinic/hospital department documented in this encounter Visit Diagnoses Diagnosis Abdominal pain, other specified site- Primary documented in this encounter Care Teams Casing In Line Feeder Relationship Specialty Start Date End Date Derrell Stanley MD [address] [place] [address] [place] [address] PCP - General Family Practice 10/27/09 documented as of this encounter
--- OUTSIDE RECORDS SUMMARY | 2024-12-12 06:40 | XMS_ITS | Encounter Summary ---
Author Organization [facility] Address [address] [place] [address] Care Team Providers Care Warehouse Shipper Name Role Phone Derrell Stanley MD Primary Care Provider [phone] Encounter Details Date Type Department Care Team (Late st Contact Info) Description 02/22/2006 Outpatient [facility] [address] [place] [address] Vega Adame MD [id number] [place] [address] Social History Tobacco Use Types Packs/Day Years Used Date Smoking Tobacco: Never Assessed Sex and Gender Information Value Date Recorded Sex Assigned at Not on file 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
== END 2024-12-12 06:38 | disposition home or self-care (01) ==
PROVIDERS: PCP Internal Medicine
DX: S99.922A Unspecified injury of left foot, initial encounter (principal); X58.XXXA Exposure to other specified factors, initial encounter
CPT/HCPCS: 73718; 73721